=== PATIENT | female | born 1995 | race Caucasian/White ===

== ENCOUNTER 2020-05-28 09:15 | Outpatient (NON) | payer OTHER, SELFPAY ==
[2020-05-28 09:25] LABS: Basophils Absolute Auto 0.05 K/mm3 (0.00-0.10); Basophils Percent Auto 0.6 % (0.0-1.0); Eosinophils Absolute Auto 0.57 K/mm3 (0.02-0.50); Eosinophils Percent Auto 6.4 % (1.0-6.0); Hemoglobin 10.9 g/dL (12.0-15.0); Immature Granulocyte Absolute 0.08 K/mm3 (0.00-0.00); Immature Granulocyte Percent A 0.9 % (0.0-0.0); Lymphocytes Absolute Auto 1.88 K/mm3 (1.10-4.50); Mean Corpuscular HGB Conc 32.1 g/dL (32.0-36.0); Mean Corpuscular Hemoglobin 27.5 pg (27.0-31.0); Mean Corpuscular Volume 85.6 fL (78.0-102.0); Mean Platelet Volume 9.6 fl (9.2-11.8); Monocytes Absolute Auto 0.51 K/mm3 (0.10-0.90); Monocytes Percent Auto 5.7 % (2.0-11.0); Neutrophils Absolute Auto 5.9 K/mm3 (1.7-7.2); Neutrophils Percent Auto 65.4 % (50.0-70.0); Platelet Count Result 324 K/mm3 (150-420); Red Blood Count 3.97 M/mm3 (4.20-5.40); Red Cell Distribution Width 13.4 % (11.6-14.4); White Blood Count 8.9 K/mm3 (4.8-10.8)
[2020-05-28 09:49] LABS: Alanine Aminotransferase 20 U/L (14-59); Alkaline Phosphatase 85 U/L (46-116); Anion Gap 12 mmol/L (8-16); Aspartate Amino Transferase 20 U/L (15-37); Bilirubin,Total 0.2 mg/dL (0.00-1.00); Blood Urea Nitrogen 9 mg/dL (7-18); Calcium 8.4 mg/dL (8.5-10.1); Carbon Dioxide 25 mmol/L (21-32); Chloride 103 mmol/L (98-108); Estimated Glomerular Filt Rate > 60; Glucose 83 mg/dL (70-99); Osmolality Calculated 287 mOsm/kg (285-295); Potassium 3.8 mmol/L (3.5-5.1); Sodium 140 mmol/L (136-145)
== END 2020-05-28 09:16 ==
PROVIDERS: PCP Family Medicine
DX: T80.211A Bloodstream infection due to central venous catheter, initial encounter (principal); Z79.2 Long term (current) use of antibiotics
CPT/HCPCS: 36415; 80053; 85025

== ENCOUNTER 2021-11-25 18:17 | Emergency (ER) | payer BC, MEDICAID, SELFPAY ==
[2021-11-25] VITALS (16 sets, daily range): BP systolic 95–115; BP diastolic 65–74; PULSE 62–83; RESP 14–21; TEMP 36.9; O2SAT 91–100
--- NOTE | ~2021-11-25 | XR_ITS ---
EXAMINATION: XR chest 2V Exam Date/Time: 11/25/2021 19:00 CDT HISTORY: worsening Lt sided upper chest pain;hx of pulm HTN Comparison: None available. RESULT: Lines, tubes, and devices: Right IJ central line, terminating in the SVC. Lungs and pleura: Suggestion of pruning of the peripheral vessels. Prominent interstitial markings. Peribronchial cuffing. Cardiomediastinal silhouette: Stable. Other: No acute osseous or upper abdominal finding. IMPRESSION: No acute cardiopulmonary process. Chronic changes likely related to the history of pulmonary arterial hypertension, with possible changes of respiratory bronchiolitis and/or interstitial lung disease. C orrelate with prior history and outside imaging if available. Reviewed, dictated and finalized at location [facility]. IMPRESSION: No acute cardiopulmonary process. Chronic changes likely related to the history of pulmonary arterial hypertension, with possible changes of respiratory bronc hiolitis and/or interstitial lung disease. Correlate with prior history and out side imaging if available.
--- NOTE | 2021-11-25 18:19 | ECG_ITS ---
Measurements Intervals [place] Rate: 76 P: 45 LA: 155 QRS: 117 QRSD: 108 T: 21 QT: 424 QTc: 478 Interpretive Statements SINUS RHYTHM INCOMPLETE RIGHT BUNDLE BRANCH BLOCK LEFT POSTERIOR FASCICULAR BLOCK ST-T WAVE ABNORMALITY IN ANTERIOR LEADS- CONSIDER ISCHEMIA ABNORMAL ECG NO PREVIOUS ECG AVAILABLE FOR COMPARISON Electronically Signed On 11-25-2021 20:42:32 CDT by Moises Montalvo D.O.
[2021-11-25 18:41] LABS: Basophils Percent Auto 0.4 % (0.2-1.2); Eosinophils Absolute Auto 0.3 K/mm3 (0-0.3); Hematocrit 35.6 % (37.0-47.0); Hemoglobin 11.7 g/dL (12.0-15.0); Immature Granulocyte Absolute 0.01 K/mm3 (0.00-0.031); Immature Granulocyte Percent A 0.2 % (0-0.5); Lymphocytes Absolute Auto 1.84 K/mm3 (0.9-3.2); Lymphocytes Percent Auto 35.2 % (18.3-44.2); Mean Corpuscular HGB Conc 32.9 g/dl (32-36); Mean Corpuscular Hemoglobin 27.5 pg (26-34); Mean Corpuscular Volume 83.6 fl (80-100); Mean Platelet Volume 9.7 fl (7.4-10.4); Monocytes Absolute Auto 0.4 K/mm3 (0.1-0.6); Monocytes Percent Auto 6.9 % (2.6-8.5); Neutrophils Absolute Auto 2.7 K/mm3 (1.3-6.7); Neutrophils Percent Auto 52.3 % (45.5-73.1); Platelet Count Result 290 k/mm3 (150-375); Red Blood Count 4.26 M/mm3 (4.2-5.4); Red Cell Distribution Width 13.3 % (11.5-14.5); White Blood Count 5.2 K/mm3 (4.5-10.0)
[2021-11-25 18:53] LABS: Alanine Aminotransferase 16 U/L (6-35); Albumin Level 4.5 g/dL (3.5-5.1); Alkaline Phosphatase 58 U/L (38-126); Anion Gap 13 mmol/L (8-16); Aspartate Amino Transferase 16 U/L (14-36); Bilirubin,Total 0.3 mg/dL (0.2-1.3); Blood Urea Nitrogen 11 mg/dL (7-17); Calcium 8.9 mg/dL (8.4-10.2); Carbon Dioxide 24 mmol/L (22-30); Chloride 102 mmol/L (98-107); Estimated CRCL calculation 73 ml/min; Estimated Glomerular Filt Rate > 60; Glucose 95 mg/dL (65-110); Lipase 70 U/L (23-300); Potassium 3.7 mmol/L (3.4-5.0); Sodium 139 mmol/L (137-145)
[2021-11-25 19:05] LABS: INR 1.1; Prothrombin Time 13.6 Seconds (11.1-14.7); Troponin I < 0.012 ng/mL (0.000-0.034)
[2021-11-25 19:06] LABS: Partial Thromboplastin Time 33.4 SECONDS (22.3-36.8)
--- NOTE | 2021-11-25 19:58 | ED.CHESTPAIN ---
HPI - Chest Pain General Chief Complaint: Chest Pain Stated Complaint: chest pain, hx of pulmonary HTN Time Seen by Provider: 11/25/21 19:45 Source: RN notes reviewed History of Present Illness HPI narrative: Patient presents emergency room from home for left-sided chest pain. Patient states she has had pain intermittently for the past 2 weeks pain is located left anterior chest and does not radiate described as a tightness in nature. She denies any shortness of breath of the symptoms she denies any fevers or chills abdominal pain nausea vomiting or other symptoms patient states she does have a history of pulmonary hypertension and is followed at [facility] does have a PICC line where she receives daily medication patient is followed by Dr. Lorenzana at [place] for ulmonary hypertension Related Data Allergies Allergy/AdvReac Type Severity Reaction Status Date / Time vancomycin AdvReac Swelling Verified 11/25/21 19:56 Review of Systems Review of Systems: Gen.: Denies fevers or chills ENT: Denies congestion Respiratory: Denies shortness of breath or cough CV: Reports chest pain GI: Denies abdominal pain nausea, emesis or diarrhea denies burning, urgency, frequency or hematuria Musculoskeletal: Denies back pain or muscle pain Neuro: Denies numbness, tingling, weakness or focal weakness Skin: Denies rash Except as documented, all other systems reviewed and negative [facility] Past Medical History Medical History (Updated 11/26/21 @ 00:00 by Arcadio James) Pulmonary hypertension Social History Social History (Updated 11/25/21 @ 19:59 by Mayank Vegas DO) Smoking status: Never smoker Exam Narrative: APPEARANCE: No acute distress, nontoxic, resting in bed EYES: EOMI HEENT: Normocephalic, atraumatic, OMM RESPIRATORY: No respiratory distress Clear to auscultation bilaterally with no rhonchi wheezing or rales. CARDIOVASCULAR: Regular rate and rhythm without murmurs rubs or gallops. Chest: Tender palpation of the left anterior chest wall just to the left of the sternum and region of ribs 7 and 8 with point tenderness present ABDOMINAL: Soft, nontender, nondistended, no rebound or guarding MUSCULOSKELETAl: Moves all extremities. No clubbing, cyanosis or edema. NEURO: Awake and alert. Following commands, speech normal, no focal deficits SKIN:: Warm, dry. No rashes lesions or abrasions PSYCHIATRIC: Normal affect/mood, Course Course Emergency Course: Discussed Dr. Lance for cardiology presentation work-up discussed patient's EKG which she states that incomplete right bundle branch block and strain can be seen normally with pulmonary hypertension with the pain being intermittent for the past 2 weeks today troponins in the ED feels patient will be discharged follow-up as an Discussed with patient results of workup and diagnosis. Discussed need for follow-up with primary care, proper use of medication, and reasons to return to the emergency department. Patient understands and agrees to current treatment plan Vital Signs Vital signs: Vital Signs Temperature 98.5 F 11/25/21 18:47 Pulse Rate 73 11/25/21 18:47 Respiratory Rate 16 11/25/21 18:47 Blood Pressure 115/65 11/25/21 18:47 Pulse Oximetry 100 11/25/21 18:47 Oxygen Delivery Room Air 11/25/21 18:47 Temperature 98.5 F 11/25/21 18:47 Pulse Rate 62 11/25/21 22:47 Respiratory Rate 18 11/25/21 22:47 Blood Pressure 100/74 11/25/21 21:00 Pulse Oximetry 99 11/25/21 22:47 Oxygen Delivery Room Air 11/25/21 18:47 MDM - Chest Pain MDM Narrative Medical decision making narrative: Patient's EKGs and labs are without significant high risk changes. Cardiac risk factors reviewed. Patient is felt likely low risk for ACS and reasonable for further risk stratification testing as an outpatient. Pain was not sudden or maximal in onset without tearing or ripping quality. No other signs of symptoms suggest aortic dissection. A low-risk
[2021-11-25 20:21] LABS: D Dimer 0.41 ug/mL (<0.48)
[2021-11-25] MEDS: KETOROLAC 30 MG/ML VIAL (*BKC) IV PUSH (21:49)
[2021-11-25 22:19] LABS: Troponin I < 0.012 ng/mL (0.000-0.034)
== END 2021-11-25 23:05 | disposition home or self-care (01) ==
PROVIDERS: Emergency Provider Emergency Medicine; PCP Family Medicine
DX: R07.9 Chest pain, unspecified (principal); I27.20 Pulmonary hypertension, unspecified; I45.2 Bifascicular block; R94.31 Abnormal electrocardiogram [ECG] [EKG]
CPT/HCPCS: 36415; 71046; 80053; 83690; 84484; 85025; 85380; 85610; 85730; 93005; 96374; 99284; J1885

== ENCOUNTER 2025-03-03 16:02 | Emergency (ER) | payer BC, MEDICAID, SELFPAY ==
--- NOTE | ~2025-03-03 | US_ITS ---
EXAMINATION: US transvaginal INDICATION: Looking for IUD. Comparison:No prior studies for comparison. TECHNIQUE: Multiple transabdominal and endovaginal sonographic images of the pelvis performed. FINDINGS: The uterus measures 9.9 x 3.6 x 4.8 cm. IUD present in the endometrium. The endometrial complex measures 5 mm. The right ovary measures 4 x 2.5 x 3.5 cm and the left ovary measures 3.3 x 1.1 x 2 cm. There is a 3 cm right ovarian cyst. There are small follicles in each ovary. Mildly prominent tubular structure left adnexa, likely prominent fallopian tube. Normal doppler signal in both ovaries. There is no free fluid in the pelvis. There are no abnormal masses seen on either side. IMPRESSION: 1. IUD present in the endometrium. 2: Simple cyst of the right ovary measuring 3 cm. Reviewed, dictated and finalized at location O. INSPECTOR
--- OUTSIDE RECORDS SUMMARY | 2025-03-03 16:03 | XMS_ITS | Encounter Summary ---
Author Organization [facility] Address [address] [place] [address] Phone Care Team Providers Care Moving Picture Producer Name Role Phone Dioni Rivera MD Primary Care Provider Brianna Madsen NP Primary Care Provider [phone] Dioni Rivera MD Primary Care Provider Edouard Carver MD Primary Care Provider [phone] Encounter Details Date Type Department Care Team (Latest Contact Info) Description 09/05/2019 Orders Only [facility] Scanning, Provider Social History Tobacco Use Types Packs/Day Years Used Date Smoking Tobacco: Never Assessed AUDIT-C Answer Date Recorded Q1: How often do you have a drink containing alc ohol? Never 09/07/2019 Average Number of Drinks Not on file 020 Frequency of Binge Drinking Not on file 03/2019 Comments Unknown Sex and Gender Information Value Date Recorded Sex Assigned at Not on file Legal Sex Female 10:09 AM CDT Gender Identity Not on file Sexual Orientation Not on file documented as of this encounter Plan of Treatment Not on file documented as of this encounter Procedures Procedure Name Priority Date/Time Associated Diagnosis Comments CARDIOLOGY DOCUMENT SCAN 09/05/2019 documented in this encounter Results * SCAN - CARDIOLOGY (09/05/2019) Anatomical Region Laterality Modality Other us Provider Scanning CV CARDIAC SERVICES PROCEDURES Final Result documented in this encounter Visit Diagnoses Not on filedocumented in this encounter Additional Health Concerns Infection Onset Date Last Indicated Resolved Time COVID: Suspected Comment:ID/IP Review - Isolation precautions cleared by Dr. Parekh. 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
--- OUTSIDE RECORDS SUMMARY | 2025-03-03 16:03 | XMS_ITS | Clinical Summary ---
Author Organization [facility] Address [address] [place] [address] Care Team Providers Care Artificial Pearl Maker Name Role Phone Edouard Carver MD Primary Care Provider [phone] Allergies Active Allergy Reactions Criticality Noted Date Comments Balsam Rhodelia Rash Medium 08/10/2020 Benzocaine Rash Medium 08/10/2020 Cefepime Urticaria Medium 05/19/2020 Given at the same time as vancomycin. Developed urticarial rash, pruritus within 1 hr, responded well with IV diphenhydramine. Did not re-challenge in the absence of vancomycin. Multivitamin With Iron-Mineral Rash Medium 08/10/2020 Other Rash Medium 08/10/2020 N,n Diphenylguanidine +/- Piperacillin-Tazobact am Other (See comments) Low 11/02/2020 Chlorhexidine Gluconate Rash Medium 05/15/2020 Sodium Benzoate-Sod Phenylacet Rash Medium 08/10/2020 Vancomycin Urticaria Medium 05/19/2020 Given at the same time as cefepime. Developed urticarial rash, pruritus within 1 hr, responded well with IV diphenhydramine. Did not re-challenge at slower rate Medications acetaminophen (TYLENOL) 500 mg tablet Take 1 tablet (500 mg total) by mouth every 6 (six) hours as needed for pain or headaches 30 tablet 020 Active loperamide (IMODIUM) 2 mg capsuleIndicati ons:diarrhea Take 2 capsules (4 mg total) by mouth 3 (three) times a day as needed for diarrhea 30 capsule 021 Active sertraline (ZOLOFT) 50 mg tablet TAKE 1/2 TABLET BY MOUTH EVERY EVENING FOR 7 DAYS, THEN INCREASE TO 1 TABLET DAILY 023 Active Remodulin 2.5 mg/mL solution Remodulin 10mg/mL subcutaneous infusion Remunity pump 95 ng/kg/min 66 kg Order-specific weight (0.0376 mL/hr), subcutaneous, Continuous, Starting on Thu10/23/23 at 0630 Specialty pharmacy nurse will come at 0630 for final tariff supervisor. Specialty Pharmacy Service provider: [facility] Indications: Pulmonary Hypertension 20 mL 024 Active spironolactone (ALDACTONE) 25 mg tablet Take 1 tablet (25 mg total) by mouth daily 90 tablet 3 024 Active famotidine (PEPCID) 40 mg tablet Take 1 tablet (40 mg total) by mouth daily as needed for heartburn 30 tablet 11 024 Active furosemide (LASIX) 20 mg tablet Take 1 tablet (20 mg total) by mouth daily 180 tablet 1 024 Active loratadine (CLARITIN) 10 mg tablet Take 1 tablet (10 mg total) by mouth daily as needed for allergies 30 tablet 11 024 Active montelukast (SINGULAIR) 10 mg tablet Take 1 tablet (10 mg total) by mouth nightly 180 tablet 1 024 Active ondansetron (Zofran) 4 mg tablet Take 1 tablet (4 mg total) by mouth every 8 (eight) hours as needed for nausea or vomiting 20 tablet 2 024 Active gabapentin (NEURONTIN) 300 mg capsule Take 1 capsule (300 mg total) by mouth nightly 90 capsule 3 024 Active traMADoL (ULTRAM) 50 mg tablet Take 1 tablet (50 mg total) by mouth every 8 (eight) hours as needed for pain 60 tablet 025 Active Opsumit 10 mg tablet TAKE 1 TABLET DAILY. 30 tablet 11 025 Active tadalafiL, pulm. hypertension, (ADCIRCA) 20 mg tablet TAKE 2 TABLETS ONCE DAILY. Generic for Adcirca 60 tablet 11 025 Active ambrisentan (LETAIRIS) 10 mg tabletIndicatio ns:Pulmonary Arterial Hypertension Take 1 tablet (10 mg total) by mouth daily 30 tablet 11 022 2021 Discontinued(E rror) naloxone (NARCAN) 4 mg/actuation spray,non-aeros ol Administer 1 spray into affected nostril(s) as needed for opioid reversal or respiratory depression Call 911. Administer a single spray in one nostril. Repeat every 3 minutes as needed if no or minimal response. 1 each 023 2022 Discontinued Active Problems Problem Noted Date Diagnosed Date Contact dermatitis due to adhesive bandage 11/03 Atopic dermatitis 11/03/2020 Anxiety 09/09/2019 Assessment & Plan (09/13/2019 3:58 PM CDT): Stable, takes sertraline at home - continue sertraline Assessment & Plan (09/09/2019 12:36 AM CDT): - stable [ ] home sertraline Seasonal allergies 09/09/2019 Assessment & Plan (09/13/2019 3:58 PM CDT): Takes cingulair at home - continue cingulair Assessment & Plan (09/09/2019 12:37 AM CDT): - stable [ ] home cingulair Syncope 09/08/2019 Assessment & Plan (09/13/2019 4:22 PM CDT): Several months of exertional syncope. Previous work-up attributed this to R- sided heart failure with pHTN. Admitted following syncope during 6-minute walk test. Previously evaluated with EEG, telemetry. TTE in past demonstrating R sided heart failure with pHTN. Orthostatics in past strongly positive - Treat pHTN as above - Monitor tele - Amio if unstable tachycardia Assessment & Plan (09/09/2019 12:54 AM CDT): - worsening exertional syncope over the past few months, now can no longer walk around without syncopal episodes - imaging and RHC suggests RH failure with pHTN - history and EEG non-concerning for seizure activity - tilt table test positive - Holter monitor negative for arrhyhtmia in the past, but was in SVT for some time while here [ ] Treat pHTN [ ] telemetry monitoring [ ] Amiodarone if unstable tachycardia Pulmonary hypertension Assessment & Plan (09/19/2019 11:09 AM CDT): Recently diagnosed by Dr. Lorenzana, likely Group 1. RHC 09/03 showing PAP 57. TTE 09/07 showing PASP 80 with enlarged RV bowing into LV,Mod RV with mod reduced fxn, RV apex akinetic LV small with normal function, RA enlargement. CT PE negative. PFT's unremarkable. BARTOLOME, RA negative. Genetic panel as outpatient given history of pHTN in grandmother. Double lumen tunnel cath placed with IR for transitioning to outpatient regimen on 09/13. - Dobutamine OFF - Veletri titrated to 9 ng/kg/min, appreciate recs from Dr. Lorenzana - PO Lasix 40 daily and Spironolactone 25 mg daily - fluid balance goal -1L - Sildenafil 20 mg TID; per pulm, plan to transition sildenafil to tadalafil for q day dosing to increase compliance - PICC removal today - no need to obtain CXR - Discharge today Assessment & Plan (09/13/2019 2:53 PM CDT): - Diagnosed recently, following with Dr. Lorenzana - stable on room air while resing - increased H/H likely secondary to pHTN - Likely group 1: RHC 09/04/19 with PAp 57; TTE 09/08/19 with PASP ~80 with enlarged RV bowing into the LV, LV small but normal function, RA enlargement; CTA negative for PE; PFT's unremarkable - BARTOLOME and RA negative - genetic panel as outpatient given family history [ ] plan for double lumen tunnel cath tomorrow with IR for transitioning to outpatient regimen [ ] on dobutamine @ 5, vasopressin off [ ] Veletri being up-titrated, now @ 6, apprecatie recs from Dr Lorenzana (pager [phone]) [ ] stopped home fludrocortisone [ ] lasix drip previously held for hyponatremia, which has now resolved [ ] today only, lasix 20mg IV and spironolactone 12.5mg [ ] tomorrow, resume PO Lasix 40 [ ] fluid balance goal -1L [ ] trend lactate, SCVO2 Heritable pulmonary hypertensive arterial diseas e Chronic right-sided CHF (congestive heart failur e) Resolved Problems Problem Noted Date Diagnosed Date Resolved Date Hyponatremia 09/10/2019 09/15/2019 Assessment & Plan (09/13/2019 3:57 PM CDT): Unclear etiology. Possible SIADH. Most recent Na 137 at time of transfer to cardiology - Lasix 40 PO Assessment & Plan (09/12/2019 11:55 AM CDT): Patient with sodium 133->130->128->133, etiology unclear. Net negative on fluids past several days. UFurea 37.5%, urine osoms borderline low, picture most consistent with SIADH. - d/c Lasix ggt - Lasix PO 40 Encounters Date Type Department Care Team Description 01/23/2025 Telephone [facility] Medicine Pulmonary [facility] Medicine 8th [place] [address] [place] [phone] Nenita Garcia for opsumit (Per cmm and prime auth is approved for opsumit and good until 01/23/26) 12/28/2024 Results Follow-Up [facility] Medicine Pulmonary [address] [place] [address] 8th [place] [address] [place] [phone] Ana Gaytan NP CBC with auto differential, HIV 1/2 Antibody plus p24 Antigen Blood, Comprehensive metabolic panel, Additional followed-up results: 4 12/21/2024 1:50 PM CDT Lab [facility] [address] [place] [id number] Heritable pulmonary hypertensive arterial disease (HCC); High risk medication use; Chronic right-sided CHF (congestive heart failure) (HCC) 12/21/2024 1:10 PM CDT Office Visit [facility] Medicine Pulmonary [address] [place] [address] 8th [place] [address] [place] [phone] Ana Gaytan NP Heritable pulmonary hypertensive arterial disease (HCC) (Primary Dx); Chronic right-sided CHF (congestive heart failure) (HCC); High risk medication use 12/21/2024 12:10 PM CDT - 12/21/2024 11:59 PM CDT Hospital Encounter [facility] Medicine Pulmonary [address] [phone] Heritable pulmonary hypertensive arterial disease (HCC); Chronic right-sided CHF (congestive heart failure) (HCC); High risk medication use Discharge Disposition: Discharge to home or self care from Last 3 Months Immunizations Immunization Administration Dates Next Due Influenza, Quadrivalent, Stacy l Culture-based MDCK, Preservative Free, Antibiotic Free, Intramuscular 12/26/2021 Pneumococcal Polysaccharide PPV23 11/22/2019 Surgical History Surgery Date Site/Laterality Comments TUNNELED LINE PLACEMENT > 5 YEARS 09/14/2019 N/A REMOVE TUNNELED LINE 05/16/2020 Left TUNNELED LINE PLACEMENT > 5 YEARS 06/04/2020 N/A KNEE SURGERY Right arthroscopic KNEE SURGERY Right tendon surgery ORAL SURGERY CARDIAC CATHETERIZATION 08/03/2020 EXCHANGE TUNNELED LINE 06/30/2022 Left REMOVE TUNNELED LINE 10/23/2023 Left Medical History Medical History Date Comments Pulmonary arterial hypertension (HCC) Depression CHF (congestive heart failure) (HCC) right sided Family History Medical History Relation Name Comments No Known Problems Father No Known Problems Mother Relation Name Status Comments Father Alive Mother Alive Social History Tobacco Use Types Packs/Day Years Used Date Smoking Tobacco: Never Smokeless Tobacco: Never Tobacco Cessation:Counseling Given: Not Answered Alcohol Use Standard Drinks/Week Comments Never 0 (1 standard drink = 0.6 oz pur e alcohol) AUDIT-C Answer Date Recorded Q1: How often do you have a drink containing alc ohol? 2-4 times a month 06/30/2022 Q2: How many drinks containi ng alcohol do you have on a typical day when you are drinking? 1 or 2 06/30/2022 Q3: How often do you have si x or more drinks on one occasion? Never 06/30/2022 Personal Safety Answer Date Recorded Have you ever been in or are you currently in a harmful physical or emotional relationship or is someone making you feel afraid or unsafe? Denies 10/21/2023 Comments No Sex and Gender Information Value Date Recorded Sex Assigned at Not on file Legal Sex Female 10:09 AM CDT Gender Identity Not on file Sexual Orientation Not on file Last Filed Vital Signs Vital Sign Reading Time Taken Comments Blood Pressure 102/69 12/21/2024 12:39 PM CDT Pulse 96 12/21/2024 12:39 PM CDT Temperature 36.4 C (97.5 F) 12/21/2024 12:39 PM CDT Respiratory Rate 18 12/21/2024 12:39 PM CDT Oxygen Saturation 99% 12/21/2024 12:39 PM CDT Inhaled Oxygen Concentration - - Weight 63 kg (139 lb) 12/21/2024 12:39 PM CDT Height 170.2 cm (5' 7) 12/21/2024 12:39 PM CDT Body Mass Index 21.77 12/21/2024 12:39 PM CDT Plan of Treatment Health Maintenance Due Date Last Done Comments Cervical Cancer Screening 1994 Depression Screening 1994 Hepatitis C Screening 1994 Regular Well Visit/Exam 18-64 2012 Pneumococcal vaccine <65 (2 of 2 - PCV) 11/21/2020 11/22/2019 Varicella Vaccines (2 of 2 - 13+ 2-dose series) 01/15/2021 12/18/2020 HPV Vaccines (1 - 3-dose SCD M series) 2021 Covid-19 Vaccine (4 - 2024-2 6 season) 2024 01/16/2021, 03/31/2020, 03/03/2020 Influenza Vaccine (#1) 2024 , 11/30/2023, 11/17/2022, Additional history exists DTaP/Tdap/Td Vaccine (8 - Td or Tdap) 02/04/2028 02/03/2018, 10/03/2008, 06/04/1998, Additional history exists Hepatitis B Screening Completed 08/20/2018 , 03/22/2018, 02/17/2018, Additional history exists Procedures Procedure Name Priority Date/Time Associated Diagnosis Comments EGFR Routine 12/21/2024 1:27 PM CDT Heritable pulmonary hypertensive arterial disease (HCC) Chronic right-sided CHF (congestive heart failure) (HCC) High risk medication use DIFFERENTIAL AUTO Routine 12/21/2024 1:2 7 PM CDT Heritable pulmonary hypertensive arterial disease (HCC) High risk medication use PRO B-TYPE NATRIURETIC PEPTIDE Routine 12/21/2024 1:27 PM CDT Heritable pulmonary hypertensive arterial disease (HCC) Chronic right-sided CHF (congestive heart failure) (HCC) High risk medication use FERRITIN Routine 12/21/2024 1:27 PM CDT Heritable pulmonary hypertensive arterial disease (HCC) High risk medication use PRO B-TYPE NATRIURETIC PEPTIDE Routine 12/21/2024 1:27 PM CDT Heritable pulmonary hypertensive arterial disease (HCC) Chronic right-sided CHF (congestive heart failure) (HCC) High risk medication use COMPREHENSIVE METABOLIC PANEL Routine 12/21/2024 1:27 PM CDT Heritable pulmonary hypertensive arterial disease (HCC) Chronic right-sided CHF (congestive heart failure) (HCC) High risk medication use CBC WITH AUTO DIFFERENTIAL Routine 12/21/2024 1:27 PM CDT Heritable pulmonary hypertensive arterial disease (HCC) High risk medication use HIV 1/2 ANTIBODY PLUS P24 ANTIGEN Routine 12/21/2024 1:27 PM CDT Heritable pulmonary hypertensive arterial disease (HCC) PULMONARY FUNCTION TEST (PFT) Routine 12/21/2024 12:26 PM CDT Heritable pulmonary hypertensive arterial disease (HCC) Chronic right-sided CHF (congestive heart failure) (HCC) High risk medication use from Last 3 Months Results * eGFR (12/21/2024 1:27 PM CDT) [facility] eGFR 84 >=60 mL/min/1. 73 m2 Comment: Interpretive Data Reference Interval Normal >/= 90 mL/min/1.73m2 Mildly decreased* 60 - 89 mL/min/1.73m2 Mildly to moderately decreased 45 - 59 mL/min/1.73m2 Moderately to severely decreased 30 - 44 mL/min/1.73m2 Severely decreased 15 - 29 mL/min/1.73m2 Kidney Failure < 15 mL/min/1.73m2 *Relative to young adult level Estimated glomerular filtration rate is determined by the 2020 CKD-EPI equation recommended by the National Kidney Foundation (A Unifying Approach to GFR Estimation: Recommendations of the NKF-ASK Task Force on Reassessing the Inclusion of Race in Diagnosing Kidney Disease, JASN 202). The CKD-EPI equation should not be used for patients with unstable renal function and has not been validated in children and those over 70. Current interpretive data was last reviewed 2021. Blood 12/21/2024 1:27 PM CDT 12/21/2024 3:44 PM CDT us Ana Gaytan [employer] LAB BLOOD ORDERABLES Final R esult [facility] Department [place] [address] * Differential, auto (12/21/2024 1:27 PM CDT) Neutrophil abs 5.70 1.50 - 6.50 K/cumm Imm gran abs 0.04 0.00 - 0.10 K/cumm [facility] Lymphocyte abs 1.82 0.80 - 3.30 K/cumm [facility] Monocyte abs 0.65 0.20 - 0.80 K/cumm [facility] Eosinophil abs 0.37 0.00 - 0.50 K/cumm [facility] Basophil abs 0.04 0.00 - 0.10 K/cumm [facility] Neutrophil pct 66.1 % [facility] Comment: Interpretive Data Percent cell count reference ranges are not reported, since discordance with absolute values may lead to misinterpretation of CBC data. Current Interpretive Data was last revised on 2017. Imm gran pct 0.5 % [facility] Comment: Interpretive Data Percent cell count reference ranges are not reported, since discordance with absolute values may lead to misinterpretation of CBC data. Current Interpretive Data was last revised on 2017. Lymphocyte pct 21.1 % [facility] Comment: Interpretive Data Percent cell count reference ranges are not reported, since discordance with absolute values may lead to misinterpretation of CBC data. Current Interpretive Data was last revised on 2017. Monocyte pct 7.5 % [facility] Comment: Interpretive Data Percent cell count reference ranges are not reported, since discordance with absolute values may lead to misinterpretation of CBC data. Current Interpretive Data was last revised on 2017. Eosinophil pct 4.3 % [facility] Comment: Interpretive Data Percent cell count reference ranges are not reported, since discordance with absolute values may lead to misinterpretation of CBC data. Current Interpretive Data was last revised on 2017. Basophil pct 0.5 % [facility] Comment: Interpretive Data Percent cell count reference ranges are not reported, since discordance with absolute values may lead to misinterpretation of CBC data. Current Interpretive Data was last revised on 2017. Blood 12/21/2024 1:27 PM CDT 12/21/2024 3:37 PM CDT us Ana Gaytan [employer] LAB BLOOD ORDERABLES Final R esult [facility] Department [place] [address] * Pro B-type natriuretic peptide (12/21/2024 1:27 PM CDT) NT-proBNP 109 <=300 pg/mL Comment: Interpretive Comments: A. Dyspnea in Acute Care Setting All Ages: < 300 pg/ml, acute heart failure unlikely. < 50 yrs: 300 - 450 pg/ml, further investigation warranted. > 450 pg/ml, acute heart failure likely. 50 - 74 yrs: 300 - 900 pg/ml, further investigation warranted. > 900 pg/ml, acute heart failure likely . > or = 75 yrs: 450 - 1800 pg/ml, further investigation warranted. > 1800 pg/ml, acute heart failure likely. B. Non-acute Setting < 75 yrs < 125 pg/ml, rules out heart failure. > or = 125 pg/ml, further investigation warranted. > or = 75 yrs < 450 pg/ml, rules out heart failure. > or = 450 pg/ml, further investigation warranted. - Knowledge of each individual patient's NT-proBNP range may be more useful than using similar cut-points for every patient. Please note that marked elevations in NT-proBNP levels may be observed in state other than Left Ventricular Congestive Failure, including: acute coronary syndromes, right heart strain/failure (including pulmonary embolism and cor pulmonale), critical illness, renal failure, as well as advanced age. - References: 1. Nga ADAM et.al. Eur Heart J. 2006:27:330-337. 2. Ailyn RW, Gualberto AM. J. AM Los Cardiol: Cardiovasc Imag. 2009;2: 216- 225. Interpretive Data Last Revised Date: 2017. Blood 12/21/2024 1:27 PM CDT 12/21/2024 3:37 PM CDT us Barrett Lorenzana MD LAB BLOOD ORDERABLES Madie yin Result [facility] Department [place] [address] * Pro B-type natriuretic peptide (12/21/2024 1:27 PM CDT) NT-proBNP 110 <=300 pg/mL Comment: Interpretive Comments: A. Dyspnea in Acute Care Setting All Ages: < 300 pg/ml, acute heart failure unlikely. < 50 yrs: 300 - 450 pg/ml, further investigation warranted. > 450 pg/ml, acute heart failure likely. 50 - 74 yrs: 300 - 900 pg/ml, further investigation warranted. > 900 pg/ml, acute heart failure likely . > or = 75 yrs: 450 - 1800 pg/ml, further investigation warranted. > 1800 pg/ml, acute heart failure likely. B. Non-acute Setting < 75 yrs < 125 pg/ml, rules out heart failure. > or = 125 pg/ml, further investigation warranted. > or = 75 yrs < 450 pg/ml, rules out heart failure. > or = 450 pg/ml, further investigation warranted. - Knowledge of each individual patient's NT-proBNP range may be more useful than using similar cut-points for every patient. Please note that marked elevations in NT-proBNP levels may be observed in state other than Left Ventricular Congestive Failure, including: acute coronary syndromes, right heart strain/failure (including pulmonary embolism and cor pulmonale), critical illness, renal failure, as well as advanced age. - References: 1. Nga ADAM et.al. Eur Heart J. 2006:27:330-337. 2. Ailyn PALACIOS, Gualberto ORDONEZ. J. AM Los Cardiol: Cardiovasc Imag. 2009;2: 216- 225. Interpretive Data Last Revised Date: 2017. Blood 12/21/2024 1:27 PM CDT 12/21/2024 3:37 PM CDT Ana Gaytan NP LAB BLOOD ORDERABLES Final R esult Performing Organization Address [facility] Co de Phone Number [facility] Department [place] [place] [address] * HIV 1/2 Antibody plus p24 Antigen Blood (12/21/2024 1:27 PM CDT) [facility] HIV 1/2 ab + p24 ag Nonreactive Nonreactive Comment:Nonreactive for HIV- 1 antigen and HIV-1/HIV-2 antibodies. No laboratory evidence of HIV infection. If acute HIV infection is suspected, consider testing for HIV-1 RNA. Current interpretive data was last revised on 21. Blood 12/21/2024 1:27 PM CDT 12/21/2024 3:37 PM CDT Ana Gaytan NP LAB MICROBIOLOGY - GENERAL O RDERABLES Final Result Performing Organization Address [facility] Co de Phone Number [facility] Department [place] [place] [address] * CBC with auto differential (12/21/2024 1:27 PM CDT) [facility] WBC 8.62 3.80 - 9.90 K/cumm Hgb 14.2 11.9 - 15.5 g/dL [facility] Hct 40.8 35.6 - 45.5 % [facility] Plt 308 150 - 400 K/cumm [facility] MPV 10.6 9.1 - 12.3 fL [facility] RBC 4.62 3.90 - 5.20 M/cumm [facility] MCV 88.3 81.3 - 96.4 fL [facility] MCH 30.7 27.1 - 33.3 pg [facility] MCHC 34.8 32.3 - 35.7 g/dL [facility] RDW CV 13.2 11.1 - 14.9 % [facility] RDW SD 42.8 35.7 - 48.1 fL [facility] NRBC abs 0.00 0.00 - 0.01 K/cumm [facility] Blood 12/21/2024 1:27 PM CDT 12/21/2024 3:37 PM CDT Ana Gaytan [employer] LAB BLOOD ORDERABLES Final R esult Performing Organization Address [facility] Co de Phone Number [facility] Department [place] [address] * Ferritin (12/21/2024 1:27 PM CDT) [facility] Ferritin 55 13 - 150 ng/mL Blood 12/21/2024 1:27 PM CDT 12/21/2024 3:37 PM CDT Ana Gaytan [employer] LAB BLOOD ORDERABLES Final R esult Performing Organization Address [facility] de Phone Number [facility] Department [place] [address] * (ABNORMAL) Comprehensive metabolic panel (12/21/2024 1:27 PM CDT) [facility] Sodium 141 135 - 145 mmol/L Potassium, pl 3.7 3.3 - 4.9 mmol/L [facility] Chloride 105 97 - 110 mmol/L [facility] CO2 27 22 - 32 mmol/L [facility] Anion gap 9 2 - 15 mmol/L [facility] BUN 8 6 - 25 mg/dL [facility] Creatinine 0.94 0.60 - 1.10 mg/dL [facility] Glucose 69(L) 70 - 199 mg/dL [facility] Comment: Interpretive Data Fasting glucose >/= 126 mg/dl is diagnostic for diabetes. Fasting is defined as no caloric intake for at least 8 hours. Fasting glucose between 100 mg/dl to 125 mg/dl is diagnostic of prediabetes. In a patient with classic symptoms of hyperglycemia or hyperglycemic crisis, a random glucose >/= 200 mg/dl is diagnostic for diabetes. In the absence of unequivocal hyperglycemia, results should be confirmed by repeat testing. The classification and Diagnosis of Diabetes Diabetes Care 2021; 46: S19-S40. Current interpretive data was last revised 2022. Calcium 9.5 8.5 - 10.3 mg/dL [facility] Bilirubin, total 0.4 0.1 - 1.2 mg/dL [facility] Protein, pl 7.7 6.5 - 8.5 g/dL [facility] Albumin 4.4 3.5 - 5.0 g/dL [facility] Alk phos 77 40 - 130 Units/L [facility] ALT 12 7 - 45 Units/L [facility] [facility] 12 10 - 45 Units/L [facility] Blood 12/21/2024 1:27 PM CDT 12/21/2024 3:37 PM CDT us Ana Gaytan [employer] LAB BLOOD ORDERABLES Final R esult [facility] Department [place] [address] * Pulmonary Function Test -[facility] Adult PFT Lab- CAM-8D; Walk for Distance (12/21/2024 12:26 PM CDT) Anatomical Region Laterality Modality PFT Narrative 12/21/2024 6:47 PM CDT Table formatting from the original result was not included. [facility] Division of Pulmonary & Critical Care Medicine [address] [place] [address]; [address]; [place] [address]; [phone] Pulmonary Function Laboratory Pulmonary Stress Test Simple/Oxygen Assessment Patient: Chiqui Denson Date: 12/21/2024 : 1995 Ht: 67 IN Wt: 139 LBS Time (min) Distance (ft)/ Brink O2 L/M SpO2 HR Melony* BP FEV1 % Pred Rest: RA 100 78 0 107/69 2.97 88 % Walk/Bike: 1 RA 97 125 0 2 RA 98 142 0 3 RA 97 152 0 4 RA 97 152 0 5 RA 96 154 0 6 min 0 sec RA 97 153 0 Recovery: 1 RA 96 143 0 148/80 2.76 81% 3 RA 98 106 0 *Melony rate of perceived exertion (1-10 dyspnea scale) Wilner, CHEST 2003; 123:1408 Walk Test Summary: Six Minute Walk Distance: 1800 ft Six-minute Walk Work [distance (m) x body wt (kg)]: 69005 kg.m (normal >60,000kg.m) Oxygen required to maintain SpO2 greater than 90% during six minutes of walkin L/M Comments: WFD/ATS Interpretation: Breathing room air, SpO2 is normal at rest and during exercise sufficient to increase pulse, SpO2 is stable. On this basis, SpO2 is adequate at rest breathing room air and while walking breathing room air. This level of exercise is associated with no significant change of FEV1. By signing this report, the attending pulmonary physician certifies that he/she has personally reviewed and interpreted the graphic and numerical data associated with this pulmonary function study and has reviewed and /or edited a preliminary draft report and agrees with the written final report. Barrett Lorenzana MD PFT ORDERABLES Final Res ult from Last 3 Months Insurance [facility] [email or web address] [place] [email or web address] [place] Advance Directives For more information, please contact: [phone] * Full Code (Latest Code Status on File) Date Activated Date Inactivated Comments 10/21/2023 7:24 PM 10/23/2023 4:31 PM * Full Code Date Activated Date Inactivated Comments 06/30/2022 7:26 AM 07/01/2022 5:35 AM * Full Code Date Activated Date Inactivated Comments 04/03/2022 9:19 AM 04/03/2022 2:11 PM * Full Code Date Activated Date Inactivated Comments 05/15/2020 4:58 PM 05/23/2020 12:48 AM * Full Code Date Activated Date Inactivated Comments 03/27/2020 12:40 PM 03/28/2020 8:11 PM Care Teams Artificial Pearl Maker Relationship Specialty Start Date End Date Edouard Carver MD PCP - General Family Medicine 04/03/22
--- OUTSIDE RECORDS SUMMARY | 2025-03-03 16:04 | XMS_ITS | Encounter Summary ---
Author Organization [facility] Address [address] [place] [address] Phone Care Team Providers Care Security Installer Name Role Phone Dioni Rivera MD Primary Care Provider [phone] Brianna Madsen NP Primary Care Provider [phone] Dioni Rivera MD Primary Care Provider [phone]- [phone] Edouard Carver MD Primary Care Provider [phone] Encounter Details Date Type Department Care Team (Latest Contact Info) Description 05/28/2020 Orders Only [facility] Scanning, Provider Social History Tobacco Use Types Packs/Day Years Used Date Smoking Tobacco: Never Smokeless Tobacco: Never Alcohol Use Standard Drinks/Week Comments Never 0 (1 standard drink = 0.6 oz pur e alcohol) AUDIT-C Answer Date Recorded Q1: How often do you have a drink containing alc ohol? Never 09/07/2019 Average Number of Drinks Not on file 020 Frequency of Binge Drinking Not on file 03/2019 Comments No Sex and Gender Information Value Date Recorded Sex Assigned at Not on file Legal Sex Female 10:09 AM CDT Gender Identity Not on file Sexual Orientation Not on file documented as of this encounter Plan of Treatment Not on file documented as of this encounter Procedures Procedure Name Priority Date/Time Associated Diagnosis Comments SCAN - LABS 05/28/2020 documented in this encounter Results * SCAN - LABS (05/28/2020) us Provider Scanning Final Result documented in this encounter Visit Diagnoses Not on filedocumented in this encounter Care Teams Security Installer Relationship Specialty Start Date End Date Dioni Rivera MD PCP - General Family Medicine 09/07/19 08/21/21 Brianna Madsen NP PCP - General Orthopedic Surgery 08/22/21 08/23/21 Dioni Rivera MD PCP - General Family Medicine 12/26/21 04/02/22 Edouard Carver MD PCP - General Family Medicine 04/03/22 documented as of this encounter
--- OUTSIDE RECORDS SUMMARY | 2025-03-03 16:04 | XMS_ITS | Encounter Summary ---
Author Organization [facility] Address [address] [place] [address] Phone Care Team Providers Care Registered Nurse Surgical Services Name Role Phone Dioni Rivera MD Primary Care Provider [phone]- [phone] Edouard Carver MD Primary Care Provider [phone] Encounter Details Date Type Department Care Team (Latest Contact Info) Description 03/25/2022 Orders Only [facility] Scanning, Provider Social History Tobacco Use Types Packs/Day Years Used Date Smoking Tobacco: Never Smokeless Tobacco: Never Alcohol Use Standard Drinks/Week Comments Never 0 (1 standard drink = 0.6 oz pur e alcohol) AUDIT-C Answer Date Recorded Q1: How often do you have a drink containing alc ohol? Monthly or less 08/03/2020 Q2: How many drinks containi ng alcohol do you have on a typical day when you are drinking? 3 or 4 08/03/2020 Q3: How often do you have si x or more drinks on one occasion? Never 08/03/2020 Comments No Sex and Gender Information Value Date Recorded Sex Assigned at Not on file Legal Sex Female 10:09 AM CDT Gender Identity Not on file Sexual Orientation Not on file documented as of this encounter Plan of Treatment Not on file documented as of this encounter Procedures Procedure Name Priority Date/Time Associated Diagnosis Comments SCAN - LABS 03/25/2022 documented in this encounter Results * SCAN - LABS (03/25/2022) us Provider Scanning Final Result documented in this encounter Visit Diagnoses Not on filedocumented in this encounter Care Teams Registered Nurse Surgical Services Relationship Specialty Start Date End Date Dioni Rivera MD PCP - General Family Medicine 12/26/21 04/02/22 Edouard Carver MD PCP - General Family Medicine 04/03/22 documented as of this encounter
--- OUTSIDE RECORDS SUMMARY | 2025-03-03 16:04 | XMS_ITS | Encounter Summary ---
Author Organization [facility] Address [address] [place] [address] Phone Care Team Providers Care Insurance Sales Professional Name Role Phone Dioni Rivera MD Primary Care Provider [phone] Brianna Madsen NP Primary Care Provider [phone] Dioni Rivera MD Primary Care Provider [phone]- [phone] Edouard Carver MD Primary Care Provider [phone] Encounter Details Date Type Department Care Team (Latest Contact Info) Description 11/28/2020 Orders Only [facility] Scanning, Provider [...] Date/Time Associated Diagnosis Comments SCAN - LABS 11/28/2020 documented in this encounter Results * SCAN - LABS (11/28/2020) us Provider Scanning Final Result documented in this encounter Visit Diagnoses Not on filedocumented in this encounter Care Teams Insurance Sales Professional Relationship Specialty Start Date End Date Dioni Rivera MD PCP - General Family Medicine 09/07/19 08/21/21 Brianna Madsen NP PCP - General Orthopedic Surgery 08/22/21 08/23/21 Dioni Rivera MD PCP - General Family Medicine 12/26/21 04/02/22 Edouard Carver MD PCP - General Family Medicine 04/03/22 documented as of this encounter
--- OUTSIDE RECORDS SUMMARY | 2025-03-03 16:04 | XMS_ITS | Encounter Summary ---
Author Organization [facility] Address [address] [place] [address] Phone Care Team Providers Care Pediatrician Active Practice Name Role Phone Dioni Rivera MD Primary Care Provider [phone] Brianna Madsen NP Primary Care Provider [phone] Dioni Rivera MD Primary Care Provider [phone]- [phone] Edouard Carver MD Primary Care Provider [phone] Encounter Details Date Type Department Care Team (Latest Contact Info) Description 08/18/2020 Orders Only [facility] Scanning, Provider [...] Date/Time Associated Diagnosis Comments SCAN - LABS 08/18/2020 documented in this encounter Results * SCAN - LABS (08/18/2020) us Provider Scanning Edited Result - Final documented in this encounter Visit Diagnoses Not on filedocumented in this encounter Care Teams Pediatrician Active Practice Relationship Specialty Start Date End Date Dioni Rivera MD PCP - General Family Medicine 09/07/19 08/21/21 Brianna Madsen NP PCP - General Orthopedic Surgery 08/22/21 08/23/21 Dioni Rivera MD PCP - General Family Medicine 12/26/21 04/02/22 Edouard Carver MD PCP - General Family Medicine 04/03/22 documented as of this encounter
--- OUTSIDE RECORDS SUMMARY | 2025-03-03 16:04 | XMS_ITS ---
Author Organization Unknown Address [address] [place] [phone] Phone Care Team Providers Care Pretzel Twister Name Role Phone DEANNKamini ALFONSO Cooley Primary Unavailable Immunization Immunization Date Status Additional Notes Code Code System DTP 1995 Completed 01 CVX OPV, trivalent 1994 Completed 02 CVX OPV, trivalent 1994 Completed 02 CVX OPV, trivalent 1994 Completed 02 CVX OPV, trivalent 06/04/1998 Completed 02 CVX MMR 10/21/1995 Completed 03 CVX MMR 06/04/1998 Completed 03 CVX Hep B, adolescent or pediatric 1994 Completed 08 CVX Hep B, adolescent or pediatric 1994 Completed 08 CVX Hep B, adolescent or pediatric 1994 Completed 08 CVX DTaP 06/04/1998 Completed 20 CVX varicella 12/18/2020 Completed 21 CVX DTP-Hib 1994 Completed 22 CVX DTP-Hib 1994 Completed 22 CVX DTP-Hib 10/21/1995 Completed 22 CVX pneumococcal polysaccharide PPV23 11/22/2019 Completed 33 CVX Hep B, adult 02/17/2018 Completed 43 CVX Hep B, adult 03/22/2018 Completed 43 CVX Hep B, adult 08/20/2018 Completed 43 CVX meningococcal C conjugate 10/03/2008 Completed 103 CVX Tdap 10/03/2008 Completed 115 CVX Tdap 02/03/2018 Completed 115 CVX Influenza, split virus, trivalent, PF 11/30/2023 Completed 140 CVX Influenza, split virus, quadrivalent, PF 12/04/2020 Completed 150 CVX Influenza, split virus, quadrivalent, PF 11/17/2022 Completed 150 CVX Influenza, split virus, quadrivalent, preservative 11/17/2018 Completed 158 C VX Influenza, split virus, quadrivalent, preservative 11/28/2019 Completed 158 C VX Influenza, MDCK, quadrivalen t, PF 12/26/2021 Completed 171 CVX COVID-19, mRNA, LNP-S, PF, 1 00 mcg/0.5mL dose or 50 mcg/0.25mL dose 03/03/2020 Completed 207 CVX COVID-19, mRNA, LNP-S, PF, 1 00 mcg/0.5mL dose or 50 mcg/0.25mL dose 03/31/2020 Completed 207 CVX COVID-19, mRNA, LNP-S, PF, 1 00 mcg/0.5mL dose or 50 mcg/0.25mL dose 01/16/2021 Completed 207 CVX Results DIG 3D ALFONZO DIAG BILATERAL - Completed: 11/09/2024 13:06 LOINC: \TM00\\12PI\\DRAo\\BM09\ \[place] [address] ---------NAME--------- NUMBER SEX AGE ADMIT DISC. XRAY# F/C TYPE RAQUEL CASILLAS [id number] F 29 11/09/24 11/09/24 83408 BB1 O/P DATE OF : 1995 M/R# [id number] PH#: [phone] \[facility]\ LOCATION: TRANSCRIBED: 11/09/24 13:36 DIG 3D ALFONZO DIAG BILATERAL 71739 COMPLETED:11/09/24 13:06 TLS [id number] (REASON-DIG 3D ALFONZO DIAG BILATERAL: CELLULITIS OF BREAST PHYSICIAN: LUCIEN R A D I O L O G Y R E P O R T PROCEDURE: DIG 3D ALFONZO DIAG BILATERAL, US BREAST RIGHT LTD REASON FOR EXAM: CELLULITIS OF BREAST COMPARISON: 03/28/2022 TECHNIQUE:ML, craniocaudal and modified mediolateral oblique views of the bilateral breast are obtained utilizing digital mammographic images obtained using a mammographic system. 3-D imaging with tomosynthesis combined with 2-D imaging were acquired. Targeted right breast ultrasound was performed. FINDINGS: BREAST COMPOSITION: C - The breasts are heterogeneously dense, which may obscure small masses. No asymmetrical parenchymal pattern, architectural distortion, pleomorphic microcalcifications or masses. Targeted ultrasound images of the breast demonstrate no suspicious abnormality. There are benign-appearing lymph nodes in the axilla. IMPRESSION: No findings of malignancy. RECOMMENDATION: Recommend annual mammogram. ASSESSMENT: BIRADS: 1 - Negative IAL PROCEDURES TECH \ITLo\ \UNDo\ \UNDx\ \ITLx\ Reviewed and Electronically Signed by: PASHA ZHANG Signed Date: SIGNDATE US BREAST RIGHT LTD - Comple carlos: 11/09/2024 13:21 LOINC: \TM00\\12PI\\DRAo\\BM09\ \[facility]\ [address] [address] ---------NAME--------- NUMBER SEX AGE ADMIT DISC. XRAY# F/C TYPE RAQUEL ALONDRA VINNY [id number] F 29 11/09/24 11/09/24 41329 BB1 O/P DATE OF : 1995 M/R# [id number] #: [id number] \[facility]\ LOCATION: TRANSCRIBED: 11/09/24 13:36 US BREAST RIGHT LTD [id number] COMPLETED:11/09/24 13:21 TLS [id number] (REASON-US BREAST RIGHT LTD: CELLULITIS OF BREAST PHYSICIAN: LUCIEN R A D I O L O G Y R E P O R T PROCEDURE: DIG 3D ALFONZO DIAG BILATERAL, US BREAST RIGHT LTD REASON FOR EXAM: CELLULITIS OF BREAST COMPARISON: 03/28/2022 TECHNIQUE:ML, craniocaudal and modified mediolateral oblique views of the bilateral breast are obtained utilizing digital mammographic images obtained using a mammographic system. 3-D imaging with tomosynthesis combined with 2-D imaging were acquired. Targeted right breast ultrasound was performed. FINDINGS: BREAST COMPOSITION: C - The breasts are heterogeneously dense, which may obscure small masses. No asymmetrical parenchymal pattern, architectural distortion, pleomorphic microcalcifications or masses. Targeted ultrasound images of the breast demonstrate no suspicious abnormality. There are benign-appearing lymph nodes in the axilla. IMPRESSION: No findings of malignancy. RECOMMENDATION: Recommend annual mammogram. ASSESSMENT: BIRADS: 1 - Negative IAL PROCEDURES TECH \ITLo\ \UNDo\ \UNDx\ \ITLx\ Reviewed and Electronically Signed by: MELLISSAWayne LEATHA Signed Date: SIGNDATE Social History Type Status Start Date End Date Code Code Syst em Sex Female Hospital Discharge Instructions Should you have any questions prior to discharge, please contact a member of your healthcare team. If you have left the hospital and have any questions, please contact your primary care physician. Reason For Referral No Data Found Plan of Treatment US Ext Non-Vascular Lmt (86143) 025 Digital Alfonzo Diag Bilateral (58021) 05/2024 US Breast (43053) 11/09/2024 Digital Alfonzo Diag Bilateral (56271) 05/2024 US Breast (05633) 11/09/2024 Encounters Encounter Diagnosis Start Date Code Code Sys tem Mastitis without abscess 11/09/2024 [facility] MED-CT Personal Care Team Section Performer Name Performer Role Active Date Inactive Da TAI Mar PCP - Primary care physician 2022-03-07 2022-03-15 HEATHER MAGAÑA PCP - Primary care physician 2022-03-15 Imaging Narrative Notes [facility] 11/09/2024 13:[address] [address] ---------NAME--------- NUMBER SEX AGE ADMIT DISC. XRAY# F/C TYPE RAQUEL CASILLAS [id number] F 29 11/09/24 11/09/24 80915 BB1 O/P DATE OF : 1995 M/R# [id number] #: [id number] LOCATION: TRANSCRIBED: 11/09/24 13:36 DIG 3D ALFONZO DIAG BILATERAL 85181 COMPLETED:11/09/24 13:06 TLS [id number] (REASON-DIG 3D ALFONZO DIAG BILATERAL: CELLULITIS OF BREAST PHYSICIAN: LUCIEN RADIOLOGY REPORT PROCEDURE: DIG 3D ALFONZO DIAG BILATERAL, US BREAST RIGHT LTD REASON FOR EXAM: CELLULITIS OF BREAST COMPARISON: 03/28/2022 TECHNIQUE:ML, craniocaudal and modified mediolateral oblique views of the bilateral breast are obtained utilizing digital mammographic images obtained using a mammographic system. 3-D imaging with tomosynthesis combined with 2-D imaging were acquired. Targeted right breast ultrasound was performed. FINDINGS: BREAST COMPOSITION: C - The breasts are heterogeneously dense, which may obscure small masses. No asymmetrical parenchymal pattern, architectural distortion, pleomorphic microcalcifications or masses. Targeted ultrasound images of the breast demonstrate no suspicious abnormality. There are benign-appearing lymph nodes in the axilla. IMPRESSION: No findings of malignancy. RECOMMENDATION: Recommend annual mammogram. ASSESSMENT: BIRADS: 1 - Negative IAL PROCEDURES TECH Reviewed and Electronically Signed by: WASHINGTONNAMWayne RADCREGuille Signed Date: SIGNDATE [facility] 11/09/2024 13:40 [facility] [address] [place] [address] ---------NAME--------- NUMBER SEX AGE ADMIT DISC. XRAY# F/C TYPE RAQUEL CASILLAS [id number] F 29 11/09/24 11/09/24 18819 BB1 O/P DATE OF : 1995 M/R# [id number] #: [id number] LOCATION: TRANSCRIBED: 11/09/24 13:36 US BREAST RIGHT LTD [id number] COMPLETED:11/09/24 13:21 TLS [id number] (REASON-US BREAST RIGHT LTD: CELLULITIS OF BREAST PHYSICIAN: LUCIEN RADIOLOGY REPORT PROCEDURE: DIG 3D ALFONZO DIAG BILATERAL, US BREAST RIGHT LTD REASON FOR EXAM: CELLULITIS OF BREAST COMPARISON: 03/28/2022 TECHNIQUE:ML, craniocaudal and modified mediolateral oblique views of the bilateral breast are obtained utilizing digital mammographic images obtained using a mammographic system. 3-D imaging with tomosynthesis combined with 2-D imaging were acquired. Targeted right breast ultrasound was performed. FINDINGS: BREAST COMPOSITION: C - The breasts are heterogeneously dense, which may obscure small masses. No asymmetrical parenchymal pattern, architectural distortion, pleomorphic microcalcifications or masses. Targeted ultrasound images of the breast demonstrate no suspicious abnormality. There are benign-appearing lymph nodes in the axilla. IMPRESSION: No findings of malignancy. RECOMMENDATION: Recommend annual mammogram. ASSESSMENT: BIRADS: 1 - Negative IAL PROCEDURES TECH Reviewed and Electronically Signed by: WASHINGTONNAMWayne ZHANG Signed Date: SIGNDATE
--- OUTSIDE RECORDS SUMMARY | 2025-03-03 16:04 | XMS_ITS | Encounter Summary ---
Author Organization [facility] Address [address] [place] [address] Phone Care Team Providers Care Kitchen Porter Name Role Phone Dioni Rivera MD Primary Care Provider Brianna Madsen NP Primary Care Provider [phone] Dioni Rivera MD Primary Care Provider Edouard Carver MD Primary Care Provider [phone] Encounter Details Date Type Department Care Team (Latest Contact Info) Description 08/17/2019 Orders Only [facility] Scanning, Provider Social History Tobacco Use Types Packs/Day Years Used Date Smoking Tobacco: Never Assessed Comments Unknown Sex and Gender Information Value Date Recorded Sex Assigned at Not on file Legal Sex Female 10:09 AM CDT Gender Identity Not on file Sexual Orientation Not on file documented as of this encounter Plan of Treatment Not on file documented as of this encounter Procedures Procedure Name Priority Date/Time Associated Diagnosis Comments SCAN - RADIOLOGY/IMAGING 08/17/2019 documented in this encounter Results * SCAN - RADIOLOGY/IMAGING (08/17/2019) Anatomical Region Laterality Modality Other us Provider Scanning Final Result documented in this encounter Visit Diagnoses Not on filedocumented in this encounter Additional Health Concerns Infection Onset Date Last Indicated Resolved Time COVID: Suspected Comment:ID/IP Review - Isolation precautions cleared by Dr. Parekh. Amanda Chiang, SUPERVISOR REFINING 09/07/2019 09/07/2019 09/07/2019 09/07/2019 5:57 PM CDT COVID: Suspected 05/15/2020 05/15/2020 05/15/2020 8:23 PM BATTALION CHIEF documented as of this encounter Care Teams Kitchen Porter Relationship Specialty Start Date End Date Dioni Rivera MD PCP - General Family Medicine 09/07/19 08/21/21 Brianna Madsen NP PCP - General Orthopedic Surgery 08/22/21 08/23/21 Dioni Rivera MD PCP - General Family Medicine 12/26/21 04/02/22 Edouard Carver MD PCP - General Family Medicine 04/03/22 documented as of this encounter
--- OUTSIDE RECORDS SUMMARY | 2025-03-03 16:04 | XMS_ITS ---
Author Organization Unknown Address [address] [place] [phone] Phone Care Team Providers Care Furniture Dipper Name Role Phone DEANNKamini ALFONSO Cooley Primary [...] mcg/0.25mL dose 01/16/2021 Completed 207 CVX Results US EXT NON-VASCULAR LMT - Co mpleted: 09/19/2024 11:16 LOINC: \TM00\\12PI\\DRAo\\BM09\ \[place] [address] ---------NAME--------- NUMBER SEX AGE ADMIT DISC. XRAY# F/C TYPE RAQUEL CASILLAS [id number] F 29 09/19/24 09/19/24 44132 BB1 O/P DATE OF : 1995 M/R# [id number] PH#: [phone] [facility] LOCATION: TRANSCRIBED: 09/19/24 13:43 US EXT NON-VASCULAR LMT 30539 COMPLETED:09/19/24 11:16 APC [id number] {REASON-US NON-VASC: MASS/LUMP PHYSICIAN: LUCIEN R A D I O L O G Y R E P O R T Exam: US EXT NON-VASCULAR LMT Clinical History: MASS/LUMP Comparison: None Technique: Targeted sonographic evaluation of the soft tissues of the bilateral groin was obtained utilizing grayscale and color Doppler imaging. Findings/Impression: Prominent bilateral morphologically benign lymph nodes are present in the right and left groin measuring up to 2.8 cm on the right and 1.8 cm on the left. ING MACHINE OPERATOR HELPER \ITLo\ \UNDo\ \UNDx\ \ITLx\ Reviewed and Electronically Signed by: Scott Toscano MD Signed Date: 09/19/24 13:43 Social History Type Status Start Date End Date Code Code Syst em Sex Female Hospital Discharge Instructions Should you have any questions prior to discharge, please contact a member of your healthcare team. If you have left the hospital and have any questions, please contact your primary care physician. Reason For Referral No Data Found Plan of Treatment US Ext Non-Vascular Lmt (45884) 025 Digital Alfonzo Diag Bilateral (08032) 05/2024 US Breast (33104) 11/09/2024 Digital Alfonzo Diag Bilateral (16047) 05/2024 US Breast (87720) 11/09/2024 Encounters Encounter Diagnosis Start Date Code Code Sys tem Localized enlarged lymph nodes 09/19/2024 [id number] SNOMED-CT Personal Care Team Section Performer Name Performer Role Active Date Inactive TAI Tapia PCP - Primary care physician 2022-03-07 2022-03-15 HEATHER MAGAÑA PCP - Primary care physician 2022-03-15 Imaging Narrative Notes [facility] 09/19/2024 13:45 [facility] [address] [place] [address] ---------NAME--------- NUMBER SEX AGE ADMIT DISC. XRAY# F/C TYPE RAQUEL CASILLAS [id number] F 29 09/19/24 09/19/24 33229 BB1 O/P DATE OF : 1995 M/R# [id number] #: [id number] RM LOCATION: TRANSCRIBED: 09/19/24 13:43 US EXT NON-VASCULAR LMT 45740 COMPLETED:09/19/24 11:16 APC [id number] {REASON-US NON-VASC: MASS/LUMP PHYSICIAN: LUCIEN RADIOLOGY REPORT Exam: US EXT NON-VASCULAR LMT Clinical History: MASS/LUMP Comparison: None Technique: Targeted sonographic evaluation of the soft tissues of the bilateral groin was obtained utilizing grayscale and color Doppler imaging. Findings/Impression: Prominent bilateral morphologically benign lymph nodes are present in the right and left groin measuring up to 2.8 cm on the right and 1.8 cm on the left. ING MACHINE OPERATOR HELPER Reviewed and Electronically Signed by: Scott Toscano MD Signed Date: 09/19/24 13:43
--- OUTSIDE RECORDS SUMMARY | 2025-03-03 16:04 | XMS_ITS | Encounter Summary ---
Author Organization [facility] Address [address] [place] [address] Phone Care Team Providers Care Window Sash Installer Name Role Phone Dioni Rivera MD Primary Care Provider [phone] Brianna Madsen NP Primary Care Provider [phone] Dioni Rivera MD Primary Care Provider [phone] Edouard Carver MD Primary Care Provider [phone] Encounter Details Date Type Department Care Team (Latest Contact Info) Description 03/11/2019 Orders Only [facility] Scanning, Provider [...] Date/Time Associated Diagnosis Comments CARDIOLOGY DOCUMENT SCAN 03/11/2019 documented in this encounter Results * SCAN - CARDIOLOGY (03/11/2019) Anatomical Region Laterality Modality Other us Provider Scanning CV CARDIAC SERVICES PROCEDURES Final Result documented in this encounter Visit Diagnoses Not on filedocumented in this encounter Additional Health Concerns Infection Onset Date Last Indicated Resolved Time COVID: Suspected Comment:ID/IP Review - Isolation precautions cleared by Dr. Parekh. Amanda Chiang, BOTTOM CRANE OPERATOR 09/07/2019 09/07/2019 09/07/2019 09/07/2019 5:57 PM CDT COVID: Suspected 05/15/2020 05/15/2020 05/15/2020 8:23 PM BRICK BURNER documented as of this encounter Care Teams Window Sash Installer Relationship Specialty Start Date End Date Dioni Rivera MD PCP - General Family Medicine 09/07/19 08/21/21 Brianna Madsen NP PCP - General Orthopedic Surgery 08/22/21 08/23/21 Dioni Rivera MD PCP - General Family Medicine 12/26/21 04/02/22 Edouard Carver MD PCP - General Family Medicine 04/03/22 documented as of this encounter
--- NOTE | 2025-03-03 17:07 | PC.NURSE ---
Pt. called for VS x1. Pt. at ultrasound.
[2025-03-03 17:31] VITALS: BP 120/78; PULSE 109; RESP 16; TEMP 36.4; O2SAT 100
[2025-03-03 20:00] LABS: Trichomonas Vag PCR NOT DETECTED (NOT DETECTE)
--- NOTE | 2025-03-03 20:25 | ED_ITS ---
HPI - Recheck/Abnormal Lab/Rx General Chief Complaint: Recheck/Abnormal Lab/Rx Stated Complaint: lost IUD, requesting trich testing Time Seen by Provider: 03/03/25 20:09 Source: patient Mode of arrival: ambulatory Limitations: no limitations History of Present Illness HPI narrative: This is a 29-year-old female with history of pulmonary hypertension who presents to the ED for IUD problem. Patient states that she saw her PCP today and they were checking her IUD strings but they were unable to find them. There is also potentially concerns for increased vaginal discharge by her PCP so she was concerned for Trichomonas. Denies any dysuria, hematuria, vaginal bleeding, abdominal pain. Related Data Allergies Allergy/AdvReac Type Severity Reaction Status Date / Time vancomycin AdvReac Swelling Verified 03/03/25 16:05 Review of Systems Review of Systems: All systems reviewed & are unremarkable except as noted in HPI and below PMFSH Past Medical History Medical History Pulmonary hypertension Social History Social History Smoking status: Never smoker Exam Narrative: APPEARANCE: No acute distress, nontoxic, resting in bed HEENT: Normocephalic, atraumatic, OMM RESPIRATORY: No respiratory distress CARDIOVASCULAR: Appears well perfused ABDOMINAL: No abdominal tenderness to palpation MUSCULOSKELETAl: Moves all extremities. No obvious deformities NEURO: Awake and alert. SKIN:: Warm, dry. No rashes lesions or abrasions PSYCHIATRIC: Normal affect/mood, Course Vital Signs Vital signs: Vital Signs Temperature 97.5 F L 03/03/25 17:31 Pulse Rate 109 H 03/03/25 17:31 Respiratory Rate 16 03/03/25 17:31 Blood Pressure 120/78 03/03/25 17:31 Pulse Oximetry 100 03/03/25 17:31 Temperature 97.5 F L 03/03/25 17:31 Pulse Rate 109 H 03/03/25 17:31 Respiratory Rate 16 03/03/25 17:31 Blood Pressure 120/78 03/03/25 17:31 Pulse Oximetry 100 03/03/25 17:31 MDM MDM Narrative Medical decision making narrative: 29-year-old female Presenting for IUD concerns and STI check. On initial evaluation patient was in no acute distress afebrile, hemodynamic stable. Differentials include but are not limited to: IUD dislodgement, STI, IUD check Notable exam findings: No abdominal tenderness to palpation I personally reviewed the patient's lab result. Notable lab findings: Chlamydia/gonorrhea/Trichomonas negative Transvaginal ultrasound showed appropriate placement of the IUD, incidentally noted 3 cm right ovarian cyst I did offer to attempt to visualize the string was for the patient but she felt reassured by the ultrasound at this time and did not for a pelvic examination. She was given referral to OBGYN given that there was potential concerns by PCP that the strings were unable to be patient was agreeable to this plan. Given strict return precautions. Differential Diagnosis Differential Diagnosis: IUD dislodgement, STI, IUD check Lab Data Labs: Lab Results 03/03/25 Range/Units 18:33 C. trachomatis (PCR) Not detected (NOT DETECTE) N. gonorrhoeae (PCR) Not detected (NOT DETECTE) T. vaginalis (PCR) Not detected (NOT DETECTE) Imaging Data Radiologist's impression: ITS Impressions Transvaginal US 03/03/25 17:53 IMPRESSION: 1. IUD present in the endometrium. 2: Simple cyst of the right ovary measuring 3 cm. Discharge Plan Discharge Clinical Impression: IUD (intrauterine device) in place Patient Disposition: Home Condition: Stable Instructions: Antibiotic Form, Intrauterine Device (DC) Additional Instructions: Follow-up with OBGYN regarding your IUD strings. You were given a referral to Dr. Rubin. Return to the ED for any new or worsening symptoms. Patient Language: Afghan Prescriptions: No Action ibuprofen 600 mg tablet 600 mg PO TID PRN (Reason: pain) Qty: 14 0RF Follow-up/Referrals: Lucretia Rubin MD [Physician, AIRPLANE MECHANIC APPRENTICE] Miguel,MD Dioni [Primary Care Provider, Family Practice]
--- OUTSIDE RECORDS SUMMARY | 2025-03-03 20:33 | XMS_ITS | Encounter Summary ---
Author Organization [facility] Address [address] [place] [address] Phone Care Team Providers Care Storekeeper Steward Name Role Phone Dioni Rivera MD Primary Care Provider [phone] Brianna Madsen NP Primary Care Provider [phone] Dioni Rivera MD Primary Care Provider [phone]- [phone] Edouard Carver MD Primary Care Provider [phone] Encounter Details Date Type Department Care Team [...] on filedocumented in this encounter Care Teams Storekeeper Steward Relationship Specialty Start Date End Date Dioni Rivera MD PCP - General Family Medicine 09/07/19 08/21/21 Brianna Madsen NP PCP - General Orthopedic Surgery 08/22/21 08/23/21 Dioni Rivera MD PCP - General Family Medicine 12/26/21 04/02/22 Edouard Carver MD PCP - General Family Medicine 04/03/22 documented as of this encounter
--- OUTSIDE RECORDS SUMMARY | 2025-03-03 20:33 | XMS_ITS ---
Author Organization Unknown Address [address] [place] [phone] Phone Care Team Providers Care Pit Steward Name Role Phone DEANNKamini ALFONSO Cooley Primary [...] - Co mpleted: 09/19/2024 11:16 LOINC: \TM00\\12PI\\DRAo\\BM09\ \[place] [address] ---------NAME--------- NUMBER SEX AGE ADMIT DISC. XRAY# F/C TYPE RAQUEL CASILLAS [id number] F 29 09/19/24 09/19/24 57155 BB1 O/P DATE OF : 1995 M/R# [id number] PH#: [phone] [facility] LOCATION: TRANSCRIBED: 09/19/24 13:43 US EXT NON-VASCULAR LMT 00563 COMPLETED:09/19/24 11:16 APC 58815 {REASON-US NON-VASC: MASS/LUMP PHYSICIAN: [place] R A [...] right and 1.8 cm on the left. POLISHER \ITLo\ \UNDo\ \UNDx\ \ITLx\ Reviewed and Electronically [...] Plan of Treatment US Ext Non-Vascular Lmt (73153) 025 Digital Alfonzo Diag Bilateral (30229) 05/2024 US Breast (35061) 11/09/2024 Digital Alfonzo Diag Bilateral (10199) 05/2024 US Breast (34208) 11/09/2024 Encounters Encounter Diagnosis Start Date Code Code Sys tem Localized enlarged lymph nodes 09/19/2024 [id number] SNOMED-CT Personal Care Team Section Performer Name Performer Role Active Date Inactive TAI Tapia PCP - Primary care physician 2022-03-07 2022-03-15 HEATHER MAGAÑA PCP - Primary care physician 2022-03-15 Imaging Narrative Notes [facility] 09/19/2024 13:45 [facility] [address] [place] [address] ---------NAME--------- NUMBER SEX AGE ADMIT DISC. XRAY# F/C TYPE RAQUEL CASILLAS [id number] F 29 09/19/24 09/19/24 26965 BB1 O/P DATE OF : 1995 M/R# [id number] #: [id number] LOCATION: TRANSCRIBED: 09/19/24 13:43 US EXT NON-VASCULAR LMT 15006 COMPLETED:09/19/24 11:16 APC 17808 {REASON-US NON-VASC: MASS/LUMP PHYSICIAN: LUCIEN RADIOLOGY REPORT [...] right and 1.8 cm on the left. POLISHER Reviewed and Electronically Signed by: Scott Toscano MD Signed Date: 09/19/24 13:43
--- OUTSIDE RECORDS SUMMARY | 2025-03-03 20:33 | XMS_ITS | Encounter Summary ---
Author Organization [facility] Address [address] [place] [address] Phone Care Team Providers Care Chief Knowledge Officer Name Role Phone Dioni Rivera MD Primary Care Provider [phone] Brianna Madsen NP Primary Care Provider [phone] Dioni Rivera MD Primary Care Provider dEouard Carver MD Primary Care Provider [phone] Encounter Details Date Type Department Care Team [...] precautions cleared by Dr. Parekh. Amanda Chiang, REAL ESTATE SALESPERSON 09/07/2019 09/07/2019 09/07/2019 09/07/2019 5:57 PM CDT COVID: Suspected 05/15/2020 05/15/2020 05/15/2020 8:23 PM AFTER SCHOOL COORDINATOR documented as of this encounter Care Teams Chief Knowledge Officer Relationship Specialty Start Date End Date Dioni Rivera MD PCP - General Family Medicine 09/07/19 08/21/21 Brianna Madsen NP PCP - General Orthopedic Surgery 08/22/21 08/23/21 Dioni Rivera MD PCP - General Family Medicine 12/26/21 04/02/22 Edouard Carver MD PCP - General Family Medicine 04/03/22 documented as of this encounter
--- OUTSIDE RECORDS SUMMARY | 2025-03-03 20:33 | XMS_ITS ---
Author Organization Unknown Address [address] [place] [phone] Phone Care Team Providers Care Compliance Nurse Name Role Phone DEANNKamini ALFONSO Cooley Primary [...] BILATERAL - Completed: 11/09/2024 13:06 LOINC: \TM00\\12PI\\DRAo\\BM09\ \[place] [address] ---------NAME--------- NUMBER SEX AGE ADMIT DISC. XRAY# F/C TYPE RAQUEL CASILLAS [id number] F 29 11/09/24 11/09/24 79938 BB1 O/P DATE OF : 1995 M/R# [id number] PH#: [phone] \[facility]\ LOCATION: TRANSCRIBED: 11/09/24 13:36 DIG 3D ALFONZO DIAG BILATERAL 92036 COMPLETED:11/09/24 13:06 TLS [id number] (REASON-DIG 3D ALFONZO DIAG BILATERAL: CELLULITIS OF [...] annual mammogram. ASSESSMENT: BIRADS: 1 - Negative EL RN \ITLo\ \UNDo\ \UNDx\ \ITLx\ Reviewed and Electronically Signed by: PASHA ZHANG Signed Date: SIGNDATE US BREAST RIGHT LTD - Comple carlos: 11/09/2024 13:21 LOINC: \TM00\\12PI\\DRAo\\BM09\ \[place]\ [address] [address] ---------NAME--------- NUMBER SEX AGE ADMIT DISC. XRAY# F/C TYPE RAQUEL ALONDRA VINNY [id number] F 29 11/09/24 11/09/24 73510 BB1 O/P DATE OF : 1995 M/R# [id number] #: [id number] \[facility]\ LOCATION: TRANSCRIBED: 11/09/24 13:36 US BREAST RIGHT LTD 18176 COMPLETED:11/09/24 13:21 TLS [id number] (REASON-US BREAST RIGHT LTD: CELLULITIS OF BREAST [...] annual mammogram. ASSESSMENT: BIRADS: 1 - Negative EL RN \ITLo\ \UNDo\ \UNDx\ \ITLx\ Reviewed and Electronically [...] Plan of Treatment US Ext Non-Vascular Lmt (33128) 025 Digital Alfonzo Diag Bilateral (32346) 05/2024 US Breast (06672) 11/09/2024 Digital Alfonzo Diag Bilateral (72413) 05/2024 US Breast (02699) 11/09/2024 Encounters Encounter Diagnosis Start Date Code Code Sys tem Mastitis without abscess 11/09/2024 SNO MED-CT Personal Care Team Section Performer Name Performer Role Active Date Inactive Da TAI Mar PCP - Primary care physician 2022-03-07 2022-03-15 HEATHER MAGAÑA PCP - Primary care physician 2022-03-15 Imaging Narrative Notes [facility] 11/09/2024 13:[address] [address] ---------NAME--------- NUMBER SEX AGE ADMIT DISC. XRAY# F/C TYPE RAQUEL CASILLAS [id number] F 29 11/09/24 11/09/24 29104 BB1 O/P DATE OF : 1995 M/R# [id number] #: [id number] LOCATION: TRANSCRIBED: 11/09/24 13:36 DIG 3D ALFONZO DIAG BILATERAL 99473 COMPLETED:11/09/24 13:06 TLS 11296 (REASON-DIG 3D ALFONZO DIAG BILATERAL: CELLULITIS OF [...] annual mammogram. ASSESSMENT: BIRADS: 1 - Negative EL RN Reviewed and Electronically Signed by: WASHINGTONNAMWayne RADCREGuille Signed Date: SIGNDATE [facility] 11/09/2024 13:40 [facility] [address] [place] [address] ---------NAME--------- NUMBER SEX AGE ADMIT DISC. XRAY# F/C TYPE RAQUEL CASILLAS [id number] F 29 11/09/24 11/09/24 91876 BB1 O/P DATE OF : 1995 M/R# [id number] #: [id number] LOCATION: TRANSCRIBED: 11/09/24 13:36 US BREAST RIGHT LTD 17478 COMPLETED:11/09/24 13:21 TLS 87825 (REASON-US BREAST RIGHT LTD: CELLULITIS OF BREAST [...] annual mammogram. ASSESSMENT: BIRADS: 1 - Negative EL RN Reviewed and Electronically Signed by: WASHINGTONNAMWayne ZHANG Signed Date: SIGNDATE
--- OUTSIDE RECORDS SUMMARY | 2025-03-03 20:33 | XMS_ITS | Encounter Summary ---
Author Organization [facility] Address [address] [place] [address] Phone Care Team Providers Care Tomato Pulper Operator Name Role Phone Dioni Rivera MD Primary Care Provider Brianna Madsen NP Primary Care Provider [phone] Dioni Rivera MD Primary Care Provider Edouard Carver MD Primary Care Provider [phone] Encounter Details Date Type Department Care Team [...] precautions cleared by Dr. Parekh. Amanda Chiang, VIBRATORY PILE DRIVER 09/07/2019 09/07/2019 09/07/2019 09/07/2019 5:57 PM CDT COVID: Suspected 05/15/2020 05/15/2020 05/15/2020 8:23 PM MARKET MANAGER documented as of this encounter Care Teams Tomato Pulper Operator Relationship Specialty Start Date End Date Dioni Rivera MD PCP - General Family Medicine 09/07/19 08/21/21 Brianna Madsen NP PCP - General Orthopedic Surgery 08/22/21 08/23/21 Dioni Rivera MD PCP - General Family Medicine 12/26/21 04/02/22 Edouard Carver MD PCP - General Family Medicine 04/03/22 documented as of this encounter
--- OUTSIDE RECORDS SUMMARY | 2025-03-03 20:33 | XMS_ITS | Encounter Summary ---
Author Organization [facility] Address [address] [place] [address] Phone Care Team Providers Care American History Professor Name Role Phone Dioni Rivera MD Primary Care Provider Brianna Madsen NP Primary Care Provider [phone] Dioni Rivera MD Primary Care Provider [phone] Edouard Carver MD Primary Care Provider [phone] Encounter Details Date Type Department Care Team [...] precautions cleared by Dr. Parekh. Amanda Chiang, DIRECTOR SECURITY MANAGEMENT 09/07/2019 09/07/2019 09/07/2019 09/07/2019 5:57 PM CDT COVID: Suspected 05/15/2020 05/15/2020 05/15/2020 8:23 PM TRIGONOMETRY TEACHER documented as of this encounter Care Teams American History Professor Relationship Specialty Start Date End Date Dioni Rivera MD PCP - General Family Medicine 09/07/19 08/21/21 Brianna Madsen NP PCP - General Orthopedic Surgery 08/22/21 08/23/21 Dioni Rivera MD PCP - General Family Medicine 12/26/21 04/02/22 Edouard Carver MD PCP - General Family Medicine 04/03/22 documented as of this encounter
--- OUTSIDE RECORDS SUMMARY | 2025-03-03 20:33 | XMS_ITS | Encounter Summary ---
Author Organization [facility] Address [address] [place] [address] Phone Care Team Providers Care Hydroelectric Station Operator Chief Name Role Phone Dioni Rivera MD Primary Care Provider [phone]- [phone] Edouard Carver MD Primary Care Provider [phone] Encounter Details Date Type Department Care Team [...] on filedocumented in this encounter Care Teams Hydroelectric Station Operator Chief Relationship Specialty Start Date End Date Dioni Rivera MD PCP - General Family Medicine 12/26/21 04/02/22 Edouard Carver MD PCP - General Family Medicine 04/03/22 documented as of this encounter
--- OUTSIDE RECORDS SUMMARY | 2025-03-03 20:33 | XMS_ITS | Encounter Summary ---
Author Organization [facility] Address [address] [place] [address] Phone Care Team Providers Care Laboratory Technologist Name Role Phone Dioni Rivera MD Primary Care Provider [phone] Brianna Madsen NP Primary Care Provider [phone] Dioni Rivera MD Primary Care Provider [phone] Edouard Carver MD Primary Care Provider [phone] Encounter Details Date Type Department Care Team [...] on filedocumented in this encounter Care Teams Laboratory Technologist Relationship Specialty Start Date End Date Dioni Rivera MD PCP - General Family Medicine 09/07/19 08/21/21 Brianna Madsen NP PCP - General Orthopedic Surgery 08/22/21 08/23/21 Dioni Rivera MD PCP - General Family Medicine 12/26/21 04/02/22 Edouard Carver MD PCP - General Family Medicine 04/03/22 documented as of this encounter
--- OUTSIDE RECORDS SUMMARY | 2025-03-03 20:33 | XMS_ITS | Encounter Summary ---
Author Organization [facility] Address [address] [place] [address] Phone Care Team Providers Care Detective Lieutenant Name Role Phone Dioni Rivera MD Primary Care Provider [phone] Brianna Madsen NP Primary Care Provider [phone] Dioni Rivera MD Primary Care Provider [phone]- [phone] Edouard Carver MD Primary Care Provider [phone] Encounter Details Date Type Department Care Team [...] on filedocumented in this encounter Care Teams Detective Lieutenant Relationship Specialty Start Date End Date Dioni Rivera MD PCP - General Family Medicine 09/07/19 08/21/21 Brianna Madsen NP PCP - General Orthopedic Surgery 08/22/21 08/23/21 Dioni Rivera MD PCP - General Family Medicine 12/26/21 04/02/22 Edouard Carver MD PCP - General Family Medicine 04/03/22 documented as of this encounter
== END 2025-03-03 20:48 | disposition home or self-care (01) ==
LOC: ANHED 20:31
PROVIDERS: Emergency Medicine; Emergency Provider Student in an Organized Health Care Education/Training Program; PCP Family Medicine
DX: Z30.431 Encounter for routine checking of intrauterine contraceptive device (principal); Z11.3 Encounter for screening for infections with a predominantly sexual mode of transmission; I27.20 Pulmonary hypertension, unspecified; N83.291 Other ovarian cyst, right side
CPT/HCPCS: 76830; 87491; 87591; 87661; 99284

== ENCOUNTER 2025-03-04 23:06 | Emergency (ER) | payer BC, MEDICAID, SELFPAY ==
[2025-03-04 23:15] VITALS: BP 118/74; PULSE 91; RESP 18; TEMP 36.8; O2SAT 96
--- NOTE | 2025-03-04 23:19 | ED.ANXIETY ---
HPI - Anxiety General Chief Complaint: Anxiety Stated Complaint: panic attack Time Seen by Provider: 03/04/25 23:07 Source: patient Mode of arrival: ambulatory Limitations: no limitations History of Present Illness HPI narrative: This is a 29-year-old female, with history pulmonary hypertension and anxiety who presents the emergency department complaining of an anxiety attack. The patient states she was evaluated earlier this week by her primary care doctor with concern for misplaced IUD strings. During the evaluation, she states increased mucus production was noted at the cervix and was told that the finding was certain for a sexually transmitted infection. She was seen the following day at [facility] ED. An ultrasound showed appropriate IUD position. She states she is not sure of the results from a urine gonorrhea, chlamydia and Trichomonas. She states she had a swab for the same that is currently pending. She is unsure of how to discussed the scenario with her current partner. She has no other complaints at this time. Related Data Allergies Allergy/AdvReac Type Severity Reaction Status Date / Time vancomycin AdvReac Swelling Verified 03/04/25 23:22 Review of Systems Review of Systems: Last menstrual period 1 week ago All systems reviewed & are unremarkable except as noted in HPI and below (HPI) PMFSH Past Medical History Medical History Pulmonary hypertension Surgical History Surgical History No significant past surgical history Social History Social History Smoking status: Never smoker Alcohol intake: never Substance use: never Substance use type: does not use Exam Narrative: GENERAL: Well-developed, well-nourished, and in no acute distress. HEAD: Normocephalic, atraumatic. EYES: PERRLA and EOMI. CHEST: Clear to auscultation. No respiratory distress. No wheezes rales or rhonchi HEART: Regular rate and rhythm. No murmur heard. Normal peripheral pulses. ABDOMEN: Soft, nontender, nondistended, normal active bowel sounds. No CVA tenderness to palpation NEURO: Alert and oriented x3. No focal deficit. Moving all 4 limbs spontaneously PSYCH: Normal mood and affect. Course Course Emergency Course: 12:11 - On chart review, the patient tested negative for gonorrhea, chlamydia and Trichomonas on a urine sample obtained yesterday. I discussed these findings with the patient. I advised the patient that increased cervical mucus production does not guarantee a sexually transmitted infection. The patient was given oral Atarax with improvement. I advised her to discuss the circumstances of her testing and lab results with her current partner. Will discharge with Atarax as needed for anxiety and recommendation for primary care and middle card tender follow-up. Discussed return and emergency precautions including signs/symptoms of acute abdomen and intractable vomiting. The patient voiced understanding and agreement with the plan. All questions answered to her satisfaction. Vital Signs Vital signs: Vital Signs Temperature 98.2 F 03/04/25 23:15 Pulse Rate 91 03/04/25 23:15 Respiratory Rate 18 03/04/25 23:15 Blood Pressure 118/74 03/04/25 23:15 Pulse Oximetry 96 03/04/25 23:15 Oxygen Delivery Room Air 03/04/25 23:15 Temperature 98.2 F 03/04/25 23:15 Pulse Rate 85 03/04/25 23:49 Respiratory Rate 18 03/04/25 23:49 Blood Pressure 113/74 03/04/25 23:49 Pulse Oximetry 99 03/04/25 23:49 Oxygen Delivery Room Air 03/04/25 23:49 MDM MDM Narrative Medical decision making narrative: Plan: Anxiolytics, reassess Differential Diagnosis Differential Diagnosis: Anxiety, IUD string displacement, other Discharge Plan Discharge Clinical Impression: Acute anxiety Patient Disposition: Home Condition: Stable Instructions: Antibiotic Form, Anxiety (ED) Additional Instructions: You were seen in the emergency department. Your exam and vital signs are reassuring. your given Atarax in the emergency department. I recommend following up with your screen printer and primary care provider. If you develop severe abdominal pain, abdominal pain with fevers, persistent vomiting, or if you have other emergent concerns for life, limb, or eyesight, return to the emergency department. Patient Language: Arabic Prescriptions: New hydroxyzine HCl 25 mg tablet 25 mg PO TID PRN (Reason: anxiety) Qty: 20 0RF No Action ibuprofen 600 mg tablet 600 mg PO TID PRN (Reason: pain) Qty: 14 0RF Follow-up/Referrals: Raza,TALON Phillips [Primary Care Provider, Unknown] - 2 Weeks Time of Disposition: 00:12
--- OUTSIDE RECORDS SUMMARY | 2025-03-04 23:40 | XMS_ITS | Clinical Summary ---
Author Organization [facility] Address [address] [place] [address] Care Team Providers Care Wool Buyer Name Role Phone Edouard Carver MD Primary Care Provider [phone] Allergies Active Allergy Reactions Criticality Noted Date Comments Balsam [place] Rash Medium 08/10/2020 Benzocaine Rash Medium 08/10/2020 [...] nurse will come at 0630 for final supervising fire marshal. Specialty Pharmacy Service provider: [facility] Indications: Pulmonary [...] 6, apprecatie recs from Dr Lorenzana (pager [phone]) [ ] stopped home fludrocortisone [ ] [...] Type Department Care Team Description 01/23/2025 Telephone [facility] Pul[facility] Medicine 8th [place] [address] [place] [phone] Nenita Garcia for opsumit (Per cmm and prime auth is approved for opsumit and good until 01/23/26) 12/28/2024 Results Follow-Up [facility] Medicine Pulmonary [address] [place] [address] 8th [place] [address] [place] [phone] Ana Gaytan NP CBC with auto differential, HIV 1/2 Antibody plus p24 Antigen Blood, Comprehensive metabolic panel, Additional followed-up results: 4 12/21/2024 1:50 PM CDT Lab [facility] [address] [place] [phone] Heritable pulmonary hypertensive arterial disease (HCC); High risk medication use; Chronic right-sided CHF (congestive heart failure) (HCC) 12/21/2024 1:10 PM CDT Office Visit [facility] Pulmonary [address] [place] [address] 8th [place] [address] [place] [phone] Ana Gaytan NP 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 73 m2 Comment: [...] 12/21/2024 3:44 PM CDT us Ana Gaytan ASSOCIATE PROFESSOR OF FORESTRY LAB BLOOD ORDERABLES Final R esult [facility] Department [place] [address] * Differential, auto (12/21/2024 1:27 PM CDT) Neutrophil abs 5.70 1.50 - 6.50 K/cumm Imm gran abs 0.04 0.00 - 0.10 K/cumm [facility] Lymphocyte abs 1.82 0.80 - 3.30 K/cumm [facility] Monocyte abs 0.65 0.20 - 0.80 K/cumm [facility] Eosinophil abs 0.37 0.00 - 0.50 K/cumm [facility] Basophil abs 0.04 0.00 - 0.10 K/cumm [facility] Neutrophil pct 66.1 % [facility] Comment: Interpretive Data Percent cell count reference ranges are not reported, since discordance with absolute values may lead to misinterpretation of CBC data. Current Interpretive Data was last revised on 2017. Imm gran pct 0.5 % [facility] Comment: Interpretive Data Percent cell count reference ranges are not reported, since discordance with absolute values may lead to misinterpretation of CBC data. Current Interpretive Data was last revised on 2017. Lymphocyte pct 21.1 % [facility] Comment: Interpretive Data Percent cell count reference ranges are not reported, since discordance with absolute values may lead to misinterpretation of CBC data. Current Interpretive Data was last revised on 2017. Monocyte pct 7.5 % [facility] Comment: Interpretive Data Percent cell count reference ranges are not reported, since discordance with absolute values may lead to misinterpretation of CBC data. Current Interpretive Data was last revised on 2017. Eosinophil pct 4.3 % [facility] Comment: Interpretive Data Percent cell count reference ranges are not reported, since discordance with absolute values may lead to misinterpretation of CBC data. Current Interpretive Data was last revised on 2017. Basophil pct 0.5 % [facility] Comment: Interpretive Data Percent cell count reference ranges are not reported, since discordance with absolute values may lead to misinterpretation of CBC data. Current Interpretive Data was last revised on 2017. Blood 12/21/2024 1:27 PM CDT 12/21/2024 3:37 PM CDT us Ana Gaytan ASSOCIATE PROFESSOR OF FORESTRY LAB BLOOD ORDERABLES Final R esult [facility] Department [place] [address] * Pro B-type natriuretic peptide (12/21/2024 1:27 [...] MD LAB BLOOD ORDERABLES Madie yin Result [facility] Department [place] [address] * Pro B-type natriuretic peptide (12/21/2024 1:27 [...] ORDERABLES Final R esult Performing Organization Address [facility] Co de Phone Number [facility] Department [place] [address] * HIV 1/2 Antibody plus p24 Antigen Blood (12/21/2024 1:27 PM CDT) [facility] HIV 1/2 ab + p24 ag Nonreactive [...] O RDERABLES Final Result Performing Organization Address [facility] Co de Phone Number [facility] Department [place] [address] * CBC with auto differential (12/21/2024 1:27 PM CDT) [facility] WBC 8.62 3.80 - 9.90 K/cumm Hgb 14.2 11.9 - 15.5 g/dL [facility] Hct 40.8 35.6 - 45.5 % [facility] Plt 308 150 - 400 K/cumm [facility] MPV 10.6 9.1 - 12.3 fL [facility] RBC 4.62 3.90 - 5.20 M/cumm [facility] MCV 88.3 81.3 - 96.4 fL [facility] MCH 30.7 27.1 - 33.3 pg [facility] MCHC 34.8 32.3 - 35.7 g/dL [facility] RDW CV 13.2 11.1 - 14.9 % [facility] RDW SD 42.8 35.7 - 48.1 fL [facility] NRBC abs 0.00 0.00 - 0.01 K/cumm [facility] Blood 12/21/2024 1:27 PM CDT 12/21/2024 3:37 PM CDT Ana Gaytan ASSOCIATE PROFESSOR OF FORESTRY LAB BLOOD ORDERABLES Final R esult Performing Organization Address [facility] Co de Phone Number [facility] Department [place] [address] * Ferritin (12/21/2024 1:27 PM CDT) [facility] Ferritin 55 13 - 150 ng/mL Blood 12/21/2024 1:27 PM CDT 12/21/2024 3:37 PM CDT Ana Gaytan ASSOCIATE PROFESSOR OF FORESTRY LAB BLOOD ORDERABLES Final R esult Performing Organization Address [facility] de Phone Number [facility] Department [place] [address] * (ABNORMAL) Comprehensive metabolic panel (12/21/2024 1:27 PM CDT) [facility] Sodium 141 135 - 145 mmol/L Potassium, pl 3.7 3.3 - 4.9 mmol/L [facility] Chloride 105 97 - 110 mmol/L [facility] CO2 27 22 - 32 mmol/L [facility] Anion gap 9 2 - 15 mmol/L [facility] BUN 8 6 - 25 mg/dL [facility] Creatinine 0.94 0.60 - 1.10 mg/dL [facility] Glucose 69(L) 70 - 199 mg/dL [facility] Comment: Interpretive Data Fasting glucose >/= [...] 2022. Calcium 9.5 8.5 - 10.3 mg/dL [facility] Bilirubin, total 0.4 0.1 - 1.2 mg/dL [facility] Protein, pl 7.7 6.5 - 8.5 g/dL [facility] Albumin 4.4 3.5 - 5.0 g/dL [facility] Alk phos 77 40 - 130 Units/L [facility] ALT 12 7 - 45 Units/L [facility] AST 12 10 - 45 Units/L [facility] Blood 12/21/2024 1:27 PM CDT 12/21/2024 3:37 PM CDT us Ana Gaytan ASSOCIATE PROFESSOR OF FORESTRY LAB BLOOD ORDERABLES Final R esult [facility] Department [place] [address] * Pulmonary Function Test -[facility] Adult PFT Lab- [facility]-8D; Walk for Distance (12/21/2024 12:26 PM CDT) Anatomical Region Laterality Modality PFT Narrative 12/21/2024 6:47 PM CDT Table formatting from the original result was not included. [facility] Division of Pulmonary & Critical Care Medicine [address] [place] [address]; [place] [address]; [place] [address]; [phone] Pulmonary Function Laboratory Pulmonary Stress Test Simple/Oxygen [...] Work [distance (m) x body wt (kg)]: 21525 kg.m (normal >60,000kg.m) Oxygen required to maintain [...] Res ult from Last 3 Months Insurance [facility] [place] For more information, please contact: [phone] * Full Code (Latest Code Status on [...] 12:40 PM 03/28/2020 8:11 PM Care Teams Wool Buyer Relationship Specialty Start Date End Date Edouard Carver MD PCP - General Family Medicine 04/03/22
--- OUTSIDE RECORDS SUMMARY | 2025-03-04 23:40 | XMS_ITS | Encounter Summary ---
Author Organization [facility] Address [address] [place] [address] Phone Care Team Providers Care Software Quality Automation Engineer Name Role Phone Dioni Rivera MD Primary Care Provider Brianna Madsen NP Primary Care Provider [phone] Dioni Rivera MD Primary Care Provider Edouard Carver MD Primary Care Provider [phone] Encounter Details Date Type Department Care Team [...] cleared by Dr. Parekh. Amanda Chiang, DIRECTOR OF CAPITAL GIVING 09/07/2019 09/07/2019 09/07/2019 09/07/2019 5:57 PM CDT COVID: Suspected 05/15/2020 05/15/2020 05/15/2020 8:23 PM WAD LUBRICATOR documented as of this encounter Care Teams Software Quality Automation Engineer Relationship Specialty Start Date End Date Dioni iRvera MD PCP - General Family Medicine 09/07/19 08/21/21 Brianna Madsen NP PCP - General Orthopedic Surgery 08/22/21 08/23/21 Dioni Rivera MD PCP - General Family Medicine 12/26/21 04/02/22 Edouard Carver MD PCP - General Family Medicine 04/03/22 documented as of this encounter
--- OUTSIDE RECORDS SUMMARY | 2025-03-04 23:41 | XMS_ITS | Encounter Summary ---
Author Organization [facility] Address [address] [place] [address] Phone Care Team Providers Care Poultry Farm Worker Name Role Phone Dioni Rivera MD Primary Care Provider Brianna Madsen NP Primary Care Provider [phone] Dioni Rivera MD Primary Care Provider Edouard Carver MD Primary Care Provider [phone] Encounter Details Date Type Department Care Team [...] precautions cleared by Dr. Parekh. Amanda Chiang, CRIME LAB TECHNICIAN 09/07/2019 09/07/2019 09/07/2019 09/07/2019 5:57 PM CDT COVID: Suspected 05/15/2020 05/15/2020 05/15/2020 8:23 PM LINE UP MACHINE OPERATOR documented as of this encounter Care Teams Poultry Farm Worker Relationship Specialty Start Date End Date Dioni Rivera MD PCP - General Family Medicine 09/07/19 08/21/21 Brianna Madsen NP PCP - General Orthopedic Surgery 08/22/21 08/23/21 Dioni Rivera MD PCP - General Family Medicine 12/26/21 04/02/22 Edouard Carver MD PCP - General Family Medicine 04/03/22 documented as of this encounter
--- OUTSIDE RECORDS SUMMARY | 2025-03-04 23:41 | XMS_ITS ---
Author Organization Unknown Address [address] [place] [phone] Phone Care Team Providers Care Scow Captain Name Role Phone DEANNKamini ALFONSO Cooley Primary [...] - Co mpleted: 09/19/2024 11:16 LOINC: \TM00\\12PI\\DRAo\\BM09\ \[place] [address] ---------NAME--------- NUMBER SEX AGE ADMIT DISC. XRAY# F/C TYPE RAQUEL CASILLAS [id number] F 29 09/19/24 09/19/24 15266 BB1 O/P DATE OF : 1995 M/R# [id number] PH#: [phone] [facility] LOCATION: TRANSCRIBED: 09/19/24 13:43 US EXT NON-VASCULAR LMT 09702 COMPLETED:09/19/24 11:16 APC 32910 {REASON-US NON-VASC: MASS/LUMP PHYSICIAN: LUCIEN R A [...] right and 1.8 cm on the left. TECHNOLOGIST \ITLo\ \UNDo\ \UNDx\ \ITLx\ Reviewed and Electronically [...] Plan of Treatment US Ext Non-Vascular Lmt (32228) 025 Digital Alfonzo Diag Bilateral (26005) 05/2024 US Breast (03204) 11/09/2024 Digital Alfonzo Diag Bilateral (83269) 05/2024 US Breast (52723) 11/09/2024 Encounters Encounter Diagnosis Start Date Code Code Sys tem Localized enlarged lymph nodes 09/19/2024 [id number] SNOMED-CT Personal Care Team Section Performer Name Performer Role Active Date Inactive TAI Tapia PCP - Primary care physician 2022-03-07 2022-03-15 HEATHER MAGAÑA PCP - Primary care physician 2022-03-15 Imaging Narrative Notes [facility] 09/19/2024 13:45 [facility] [address] [place] [address] ---------NAME--------- NUMBER SEX AGE ADMIT DISC. XRAY# F/C TYPE RAQUEL CASILLAS [id number] F 29 09/19/24 09/19/24 59088 BB1 O/P DATE OF : 1995 M/R# [id number] #: [id number] RM LOCATION: TRANSCRIBED: 09/19/24 13:43 [place] EXT NON-VASCULAR LMT 41238 COMPLETED:09/19/24 11:16 APC 55815 {REASON-US NON-VASC: MASS/LUMP PHYSICIAN: LUCIEN RADIOLOGY REPORT [...] right and 1.8 cm on the left. TECHNOLOGIST Reviewed and Electronically Signed by: Scott Toscano MD Signed Date: 09/19/24 13:43
--- OUTSIDE RECORDS SUMMARY | 2025-03-04 23:41 | XMS_ITS | Encounter Summary ---
Author Organization [facility] Address [address] [place] [address] Phone Care Team Providers Care Cellophane Bath Mixer Name Role Phone Dioni Rivera MD Primary Care Provider Brianna Madsen NP Primary Care Provider [phone] Dioni Rivera MD Primary Care Provider [phone] Edouard Carver MD Primary Care Provider [phone] Encounter Details Date Type Department Care Team [...] precautions cleared by Dr. Parekh. Amanda Chiang, INSPECTOR ROUGH CASTINGS 09/07/2019 09/07/2019 09/07/2019 09/07/2019 5:57 PM CDT COVID: Suspected 05/15/2020 05/15/2020 05/15/2020 8:23 PM PATIENT SCHEDULER documented as of this encounter Care Teams Cellophane Bath Mixer Relationship Specialty Start Date End Date Dioni Rivera MD PCP - General Family Medicine 09/07/19 08/21/21 Brianna Madsen NP PCP - General Orthopedic Surgery 08/22/21 08/23/21 Dioni Rivera MD PCP - General Family Medicine 12/26/21 04/02/22 Edouard Carver MD PCP - General Family Medicine 04/03/22 documented as of this encounter
--- OUTSIDE RECORDS SUMMARY | 2025-03-04 23:41 | XMS_ITS | Encounter Summary ---
Author Organization [facility] Address [address] [place] [address] Phone Care Team Providers Care Retail Aide Name Role Phone Dioni Rivera MD Primary Care Provider [phone] Brianna Madsen NP Primary Care Provider [phone] Dioni Rivera MD Primary Care Provider [phone] Edouard Carver MD Primary Care Provider [phone] Encounter Details Date Type Department Care Team [...] on filedocumented in this encounter Care Teams Retail Aide Relationship Specialty Start Date End Date Dioni Rivera MD PCP - General Family Medicine 09/07/19 08/21/21 Brianna Madsen NP PCP - General Orthopedic Surgery 08/22/21 08/23/21 Dioni Rivera MD PCP - General Family Medicine 12/26/21 04/02/22 Edouard Carver MD PCP - General Family Medicine 04/03/22 documented as of this encounter
--- OUTSIDE RECORDS SUMMARY | 2025-03-04 23:41 | XMS_ITS | Encounter Summary ---
Author Organization [facility] Address [address] [place] [address] Phone Care Team Providers Care Wet Roaster Name Role Phone Dioni Rivera MD Primary Care Provider [phone] Brianna Madsen NP Primary Care Provider [phone] Dioni Rivera MD Primary Care Provider [phone] Edouard Carver MD Primary Care Provider [phone] Encounter Details Date Type Department Care Team [...] on filedocumented in this encounter Care Teams Wet Roaster Relationship Specialty Start Date End Date Dioni Rivera MD PCP - General Family Medicine 09/07/19 08/21/21 Brianna Madsen NP PCP - General Orthopedic Surgery 08/22/21 08/23/21 Dioni Rivera MD PCP - General Family Medicine 12/26/21 04/02/22 Edouard Carver MD PCP - General Family Medicine 04/03/22 documented as of this encounter
--- OUTSIDE RECORDS SUMMARY | 2025-03-04 23:41 | XMS_ITS ---
Author Organization Unknown Address [address] [place] [phone] Phone Care Team Providers Care Program Supervisor Name Role Phone DEANNKamini ALFONSO Cooley Primary [...] BILATERAL - Completed: 11/09/2024 13:06 LOINC: \TM00\\12PI\\DRAo\\BM09\ \[place] [address] ---------NAME--------- NUMBER SEX AGE ADMIT DISC. XRAY# F/C TYPE RAQUEL CASILLAS [id number] F 29 11/09/24 11/09/24 38071 BB1 O/P DATE OF : 1995 M/R# [id number] PH#: [phone] \[facility]\ LOCATION: TRANSCRIBED: 11/09/24 13:36 DIG 3D ALFONZO DIAG BILATERAL 80516 COMPLETED:11/09/24 13:06 TLS 48764 (REASON-DIG 3D ALFONZO DIAG BILATERAL: CELLULITIS OF [...] annual mammogram. ASSESSMENT: BIRADS: 1 - Negative ING ASSISTANT \ITLo\ \UNDo\ \UNDx\ \ITLx\ Reviewed and Electronically Signed by: PASHA ZHANG Signed Date: SIGNDATE US BREAST RIGHT LTD - Comple carlos: 11/09/2024 13:21 LOINC: \TM00\\12PI\\DRAo\\BM09\ \[facility]\ [address] [address] ---------NAME--------- NUMBER SEX AGE ADMIT DISC. XRAY# F/C TYPE RAQUEL ALONDRA VINNY [id number] F 29 11/09/24 11/09/24 06753 BB1 O/P DATE OF : 1995 M/R# [id number] #: [id number] \[facility]\ LOCATION: TRANSCRIBED: 11/09/24 13:36 US BREAST RIGHT LTD 30476 COMPLETED:11/09/24 13:21 TLS 61514 (REASON-US BREAST RIGHT LTD: CELLULITIS OF BREAST [...] annual mammogram. ASSESSMENT: BIRADS: 1 - Negative ING ASSISTANT \ITLo\ \UNDo\ \UNDx\ \ITLx\ Reviewed and Electronically [...] Plan of Treatment US Ext Non-Vascular Lmt (11933) 025 Digital Alfonzo Diag Bilateral (56914) 05/2024 US Breast (35138) 11/09/2024 Digital Alfonzo Diag Bilateral (16327) 05/2024 US Breast (01630) 11/09/2024 Encounters Encounter Diagnosis Start Date Code Code Sys tem Mastitis without abscess 11/09/2024 SNO MED-CT Personal Care Team Section Performer Name Performer Role Active Date Inactive Da TAI Mar PCP - Primary care physician 2022-03-07 2022-03-15 HEATHER MAGAÑA PCP - Primary care physician 2022-03-15 Imaging Narrative Notes [facility] 11/09/2024 13:[address] [address] ---------NAME--------- NUMBER SEX AGE ADMIT DISC. XRAY# F/C TYPE RAQUEL CASILLAS [id number] F 29 11/09/24 11/09/24 73034 BB1 O/P DATE OF : 1995 M/R# [id number] #: [id number] LOCATION: TRANSCRIBED: 11/09/24 13:36 DIG 3D ALFONZO DIAG BILATERAL 01669 COMPLETED:11/09/24 13:06 TLS 82406 (REASON-DIG 3D ALFONZO DIAG BILATERAL: CELLULITIS OF [...] annual mammogram. ASSESSMENT: BIRADS: 1 - Negative ING ASSISTANT Reviewed and Electronically Signed by: WASHINGTONNAMWayne RADCREGuille Signed Date: SIGNDATE [facility] 11/09/2024 13:40 [facility] [address] [place] [address] ---------NAME--------- NUMBER SEX AGE ADMIT DISC. XRAY# F/C TYPE RAQUEL CASILLAS [id number] F 29 11/09/24 11/09/24 10986 BB1 O/P DATE OF : 1995 M/R# [id number] #: [id number] LOCATION: TRANSCRIBED: 11/09/24 13:36 US BREAST RIGHT LTD 51845 COMPLETED:11/09/24 13:21 TLS 44431 (REASON-US BREAST RIGHT LTD: CELLULITIS OF BREAST [...] annual mammogram. ASSESSMENT: BIRADS: 1 - Negative ING ASSISTANT Reviewed and Electronically Signed by: WASHINGTONNAMWayne ZHANG Signed Date: SIGNDATE
--- OUTSIDE RECORDS SUMMARY | 2025-03-04 23:41 | XMS_ITS | Encounter Summary ---
Author Organization [facility] Address [address] [place] [address] Phone Care Team Providers Care Rotor Balancer Name Role Phone Dioni Rivera MD Primary Care Provider [phone] Brianna Madsen NP Primary Care Provider [phone] Dioni Rivera MD Primary Care Provider [phone]- [phone] Edouard Carver MD Primary Care Provider [phone] Encounter Details Date Type Department Care Team [...] on filedocumented in this encounter Care Teams Rotor Balancer Relationship Specialty Start Date End Date Dioni Rivera MD PCP - General Family Medicine 09/07/19 08/21/21 Brianna Madsen NP PCP - General Orthopedic Surgery 08/22/21 08/23/21 Dioni Rivera MD PCP - General Family Medicine 12/26/21 04/02/22 Edouard Carver MD PCP - General Family Medicine 04/03/22 documented as of this encounter
--- OUTSIDE RECORDS SUMMARY | 2025-03-04 23:41 | XMS_ITS | Encounter Summary ---
Author Organization [facility] Address [address] [place] [address] Phone Care Team Providers Care Auto Rental Clerk Name Role Phone Dioni Rivera MD Primary Care Provider [phone] Edouard Carver MD Primary Care Provider [phone] Encounter Details Date Type Department Care Team [...] on filedocumented in this encounter Care Teams Auto Rental Clerk Relationship Specialty Start Date End Date Dioni Rivera MD PCP - General Family Medicine 12/26/21 04/02/22 Edouard Carver MD PCP - General Family Medicine 04/03/22 documented as of this encounter
[2025-03-04 23:49] VITALS: BP 113/74; PULSE 85; RESP 18; O2SAT 99
== END 2025-03-04 23:50 | disposition home or self-care (01) ==
LOC: CHSED 23:38
PROVIDERS: Emergency Provider Preventive Medicine Aerospace Medicine; PCP Registered Nurse
DX: F41.9 Anxiety disorder, unspecified (principal)
CPT/HCPCS: 99283; A9270